=== PATIENT | female | born 1960 | race Caucasian/White ===

== ENCOUNTER 2017-12-09 12:12 | Emergency (ER) | payer BC, SELFPAY ==
[2017-12-09 12:15] VITALS: BP 150/86; PULSE 82; RESP 16; TEMP 36.6; O2SAT 97; BMI 35.1
--- NOTE | 2017-12-09 12:26 | VDLE_ITS ---
Reason For Study: LEG PAIN RIGHT LEFT CFV is compressible, spontaneous, phasic, GSV is normal. competent and demonstrates normal CFV is compressible, spontaneous, phasic, augmentation. competent, and demonstrates normal Procedure augmentation. Exam performed portable in ED. FV is compressible, spontaneous, phasic, LLE is mislabeled as RLE on images. competent and demonstrates normal A preliminary report was called and/or faxed augmentation. to Dr. Isaacs. POP V is compressible, spontaneous, phasic, competent and demonstrates normal augmentation. T/P Trunk is compressible. PTV is compressible. LT PerV is compressible. Interpretation Summary There is no evidence of left lower extremity deep vein thrombosis. Right greater saphenous vein appears patent and compressible segmentally. Normal flow patterns right common femoral vein Ordering Physician: Kika Isaacs Performed By: Claudia Maria RVT
--- NOTE | 2017-12-09 12:59 | ED.DCSUM_ITS ---
- ER Visit Summary Date of Service: 12/09/17 Chief Complaint: [Left leg pain] History of Present Illness: The patient is a 57 F [presents the emergency department complaint of pain in her left leg that she has had for a couple weeks. Patient states that she went to [place] 2 weeks ago and while on the escalator somebody dropped a piece of luggage that then struck her against the left calf. Patient had swelling and discomfort since that time. Patient continues to have swelling and discoloration and today was seen at urgent care who referred her to the emergency department to rule out DVT as patient just flew back from [place] last night. Patient denies any chest pain or shortness of breath. Patient does not have history of DVT.] Physical Examination: [HEENT-PERRLA, EOMI. Cranial nerves II through XII grossly intact. TMs clear. Mucous membranes moist. No adenopathy. Cardiovascular-regular rate and rhythm without murmur or ectopy Lungs-clear to auscultation, chest wall stable without crepitus or subcu emphysema Abdomen-normoactive bowel sounds, soft, nontender, no rebound or rigidity, no peritoneal signs. Extremities-intact ?4, normal range of motion, normal pulses. Left leg-lower calf patient has some faint ecchymosis and bruising as well as some firmness noted with suspected hematoma. She is neurovascular intact distally. Test Results: [Venous duplex obtained was negative for DVT] Emergency Department Course and Treatment: [] Treatment Plan: [Ibuprofen for discomfort.] Disposition: [Discharged home in stable condition.] Impression: [Contusion/hematoma left calf] This note was generated with [employer] dictation software. It may contain incorrect words, spelling, and punctuation that were not noted in review of the chart prior to signing ED Disposition - Plan for ED Patient: Chief Complaint: Lower Extremity Injury Referrals: Casey Gavin MD [Primary Care Provider] -
--- NOTE | 2017-12-09 13:00 | ED.DEP ---
ED Disposition - Plan for ED Patient: Chief Complaint: Lower Extremity Injury Instructions: Contusions (Bruises), ED Hematoma Referrals: Casey Gavin MD [Primary Care Provider] - As Needed
--- NOTE | 2017-12-09 13:03 | ED.RN ---
DISCHARGE INSTRUCTIONS GIVEN TO AND REVIEWED WITH PATIENT, PATIENT DENIES QUESTIONS OR CONCERNS AND VOICES UNDERSTANDING OF DISCHARGE INSTRUCTIONS. PT AMBULATES OUT OF ROOM WITHOUT DIFFICULTY.
== END 2017-12-09 13:18 | disposition home or self-care (01) ==
LOC: ED 13:09
PROVIDERS: Emergency Provider Emergency Medicine; Family Provider Family Medicine; PCP Family Medicine
DX: S80.12XA Contusion of left lower leg, initial encounter (principal); W22.8XXA Striking against or struck by other objects, initial encounter; Y93.9 Activity, unspecified; Y92.9 Unspecified place or not applicable
CPT/HCPCS: 93971; 99282

== ENCOUNTER 2020-10-19 09:56 | Emergency (ER) | payer BC, SELFPAY ==
[2020-10-19 09:57] VITALS: BP 172/89; PULSE 105; RESP 17; TEMP 37.1; O2SAT 97; BMI 35.4
--- NOTE | 2020-10-19 10:30 | EDS_ITS ---
HPI History of Present Illness Chief Complaint: Palpitations Informant: patient Narrative Narrative: Patient is a 60-year-old female with a past medical history of hypertension, hyperlipidemia who presents to the emergency department for intermittent palpitations, lightheadedness. She states that her blood pressure has been fluctuating lately. Her initial symptoms started this past Monday. She currently is asymptomatic. She had routine lab testing done today and she was discussing her symptoms with the nurse who referred her to the emergency department. She has been asymptomatic today. She denies any chest pain. No significant shortness of breath. She has gotten lightheaded at times but is denying this now. She denies any known history of heart arrhythmia. She is not a blood thinning medications. She denies any leg swelling or calf pain. She does have a family history of coronary artery disease. She denies any recent illness including any nausea/vomiting or diarrhea. No cough, cold, congestion or fever/chills. PFSH PFS Medical History (Updated 10/19/20 @ 11:[address] Andrew Hull DO) High cholesterol Hypertension Home Medications Pravastatin 20 mg PO QHS 12/09/17 [History Last Taken Unknown] hydrochlorothiazide 25 mg PO DAILY 12/09/17 [History Last Taken Unknown] meloxicam [Mobic] 15 mg PO DAILY 12/09/17 [History Last Taken Unknown] valsartan 10/19/20 [History Last Taken Unknown] Allergy/AdvReac Type Severity Reaction Status Date / Time imiquimod [From Zyclara] Allergy Shortness Verified 10/19/20 09:57 of breath metoprolol Allergy Rash Verified 10/19/20 09:57 Penicillins [PCN] Allergy Rash Verified 10/19/20 09:57 sulfamethoxazole Allergy Rash Verified 10/19/20 09:57 [From Bactrim] trimethoprim [From Bactrim] Allergy Rash Verified 10/19/20 09:57 DAMIAN Inhibitors AdvReac Other Verified 10/19/20 09:57 Surgical History (Updated 10/19/20 @ 10:43 by Elana Morejon) History of hysterectomy History of tonsillectomy Social History Smoking Status: Unknown if ever smoked ROS ROS ED Constitutional Constitutional ED: Denies chills or fever(s) Eyes Eyes: Denies change in vision ENT ENT ED: Denies epistaxis or rhinorrhea Cardiovascular Cardiovascular: Reports palpitations; Denies chest pain Respiratory/Chest Respiratory/Chest: Denies cough, dyspnea or dyspnea on exertion Gastrointestinal Gastrointestinal: Denies abdominal pain, diarrhea, nausea or vomiting Genitourinary Genitourinary ED: Denies dysuria, hematuria or urinary frequency Musculoskeletal Musculoskeletal: Denies back pain or neck pain Integumentary Denies rash Neurologic Neurologic: Denies dizziness, headache(s) or weakness EXAM Physical Exam Const Vital Signs: 10/19/20 09:57 10/19/20 10:41 10/19/20 10:45 Temperature 98.7 F Temperature Source Temporal Pulse Rate 105 H 90 Respiratory Rate 17 19 H Respiratory Effort Normal Blood Pressure 172/89 H 157/81 H Blood Pressure Mean 116 106 Pulse Ox 97 97 Oxygen Delivery Method Room Air 10/19/20 12:06 Temperature Temperature Source Pulse Rate 89 Respiratory Rate 16 Respiratory Effort Blood Pressure 143/87 H Blood Pressure Mean Pulse Ox 99 Oxygen Delivery Method Positive well nourished and well developed General Appearance ED: well developed and NAD HEENT Reports normocephalic and head/scalp atraumatic Eyes PERRL and EOMs intact bilaterally Chest Wall inspection of chest normal Resp normal respiratory effort and clear to auscultation bilaterally Auscultation: Negative for rales, rhonchi or wheezes Cardio regular rhythm and no murmurs Rate: other Other Details: Borderline tachycardic GI normal to inspection, nondistended, normoactive bowel sounds and non-tender Palpation: soft; Negative for guarding or rebound tenderness present Back/Spine no CVA tenderness Extremity normal to inspection General Extremety ED: Negative for edema or tenderness General Extremity: Negative for edema Neuro oriented x3, CN's II-XII intact bilaterally and no sensory deficits noted Sensorium / Orientation: alert Motor Exam: strength 5/5 throughout Psych mental status grossly normal Skin no rashes or lesions noted MDM MDM MDM Narrative Medical decision making narrative: Patient presents to the hospital for intermittent palpitations which she is currently asymptomatic from. She is had some lightheadedness. On arrival to the emergency department she has a pulse of 105. She is satting 97% on room air. She is hypertensive. She otherwise is currently asymptomatic. Given her recent symptoms we will check basic lab work, EKG and chest x-ray. Patient's CBC is within normal limits. No acute electrolyte disturbance. Her troponin is well within normal limits. Her chest x-ray did not reveal any acute cardiopulmonary abnormality. She has remained asymptomatic throughout ED stay. At this time I believe she is stable for discharge as she is asymptomatic with a benign work-up. She is to follow-up with her PCP. She may benefit from Holter monitor. Return precautions are reviewed with her including any worsening symptoms, persistent symptoms. She understands and is agreeable this plan. All questions are answered. Lab Data Labs: Laboratory Results - last 24 hr 10/19/20 10/19/20 10:50 10:50 WBC 5.9 RBC 4.75 Hgb 13.6 Hct 41.5 MCV 87.4 MCH 28.6 MCHC 32.8 RDW Std Deviation 40.5 RDW Coeff of Fabrice 13.0 Plt Count 228 MPV 8.8 Immature Gran % (Auto) 0.700 Neut % (Auto) 62.1 Lymph % (Auto) 27.1 [place] % (Auto) 7.5 Eos % (Auto) 1.2 Baso % (Auto) 1.4 H Absolute Neuts (auto) 3.7 Absolute Lymphs (auto) 1.59 Nucleated RBC % 0 Sodium 143 Potassium 3.5 Chloride 107 Carbon Dioxide 29.0 Anion Gap 7 BUN 15 Creatinine 0.67 Estim Creat Clear Calc 66.54 Est GFR (MDRD) Af Amer 114 Est GFR (MDRD) Non-Af 94 BUN/Creatinine Ratio 22.3 H Glucose 109 H Calcium 9.8 Magnesium 1.7 Troponin I High Sens 3.5 Radiography Diagnostic Testing: Radiology Impression Chest X-Ray 10/19/20 11:06 IMPRESSION: No acute abnormality is seen. Electronically Signed: Charles Kennedy MD at 11:19 EDT , Service support , EKG Initial EKG: Attestation: I personally reviewed and interpreted this EKG as follows: (Rate of 84 bpm and normal sinus rhythm. Normal intervals. Normal axis. No significant ST elevations or depressions. No T wave abnormalities.) Discharge Plan Triage Chief Complaint: Palpitations ED Provider: Andrew Hull Dx/Rx/DC Orders Clinical Impression: Palpitations Instructions: ED Palpitations Prescriptions: No Action meloxicam [Mobic] 15 MG tablet 15 mg PO DAILY RF: 0 hydrochlorothiazide 25 MG tablet 25 mg PO DAILY RF: 0 Pravastatin 20 MG tablet 20 mg PO QHS RF: 0 valsartan RF: 0 Primary Care Provider: Casey Gavin Referrals: Casey Gavin MD [Primary Care Provider] - 2 Days Disposition Disposition: Home, Self Care Discharge Date/Time: 10/19/20 12:07
--- NOTE | 2020-10-19 10:33 | EKG12_ITS ---
Test Reason : PALPS Blood Pressure : / mmHG Vent. Rate : 084 BPM Atrial Rate : 084 BPM P-R Int : 160 ms QRS Dur : 070 ms QT Int : 386 ms P-R-T Axes : 030 002 016 degrees QTc Int : 456 ms Normal sinus rhythm Normal ECG Confirmed by MANJULA VU, ANANDA ([id number]), electronic news gathering editor FEDERICO ORTEGA ([id number]) on 10/21/2020 10:35:54 AM Referred By: MARY Confirmed By:ANANDA FAIR MD
[2020-10-19 10:41] VITALS: BP 157/81; PULSE 90; RESP 19; O2SAT 97
[2020-10-19 10:53] LABS: Absolute Lymphocyte Count 1.59 X10^3/uL (0.83-4.51); Absolute Neutrophil Count 3.7 X10^3/uL (2.0-7.7); Basophil# 0.08 X10^3/uL; Basophil% 1.4 % (0-1); Eosinophil# 0.07 X10^3/uL; Eosinophils% 1.2 % (0-5); Hematocrit 41.5 % (37-47); Hemoglobin 13.6 g/dL (12.0-15.0); Lymphocyte # 1.59 X10^3/ul (0.83-4.51); Lymphocyte % 27.1 % (19-41); Mean Corp Hgb Conc 32.8 g/dL (32-36); Mean Corpuscular Hgb 28.6 pg (27.0-32.0); Mean Corpuscular Volume 87.4 fL (81-99); Mean Platelet Vol. 8.8 fl (6.2-12.0); Monocyte# 0.44 X10^3/uL; Monocyte% 7.5 % (0-10); NRBC Flagged by Analyzer 0 % (0-5); Neutrophil # 3.65 X10^3/uL (2.7-7.7); Neutrophil % 62.1 % (47-70); Platelet Count 228 K/mm3 (150-450); RBC Distribution Width SD 40.5 fl (35.1-43.9); Red Blood Count 4.75 M/mm3 (4.2-5.4); White Blood Count 5.9 K/mm3 (4.4-11.0)
--- NOTE | 2020-10-19 11:06 | RAD_ITS ---
STUDY: X-RAY CHEST REASON FOR EXAM: Female, 60 years old. Shortness of breath and palpitations. TECHNIQUE: Single AP portable view of the chest. COMPARISON: Comparison is made with prior study dated 12/21/2013. FINDINGS: EKG electrodes are seen. The lungs are clear and expanded. There is no demonstrated pleural abnormality. Normal size heart. Normal mediastinum and leilani. Normal visualized pulmonary arteries. There is atherosclerotic tortuosity of the aortic arch and descending thoracic aorta. There are degenerative changes of the visualized thoracic spine. Normal visualized ribs, clavicles, and shoulders. There is no demonstrated abnormality of the visualized soft tissue structures of the upper abdomen. RAD/Chest 1 View (Portable) IMPRESSION: No acute abnormality is seen. Electronically Signed: Charles Kennedy MD at 11:19 EDT , Service support ,
[2020-10-19 11:12] LABS: Anion Gap 7 (5-15); BUN 15 mg/dL (7-18); BUN/Creat Ratio 22.3 RATIO (10-20); Calcium,Total 9.8 mg/dL (8.5-10.1); Chloride 107 mmol/L (98-107); Creatinine, Serum 0.67 mg/dL (0.55-1.02); EST Glomerular Filtration Rate 94 mL/min (>60); Est Glom Filt Rate - Afr Amer 114 mL/min (>60); Estimated Creatinine Clearance 66.54 ml/min; Glucose 109 mg/dL (74-106); Magnesium 1.7 mg/dL (1.6-2.6); Potassium 3.5 mmol/L (3.5-5.1); Sodium Level 143 mmol/L (136-145); Troponin-I HS 3.5 pg/mL (3.0-53.7)
[2020-10-19 12:06] VITALS: BP 143/87; PULSE 89; RESP 16; O2SAT 99
== END 2020-10-19 12:07 | disposition home or self-care (01) ==
PROVIDERS: Emergency Provider Emergency Medicine; PCP Family Medicine
DX: R00.2 Palpitations (principal); I10 Essential (primary) hypertension; E78.5 Hyperlipidemia, unspecified; Z79.1 Long term (current) use of non-steroidal anti-inflammatories (NSAID); Z79.899 Other long term (current) drug therapy; Z82.49 Family history of ischemic heart disease and other diseases of the circulatory system
CPT/HCPCS: 71045; 80048; 83735; 84484; 85025; 93005; 99284; A4216

== ENCOUNTER 2021-04-23 18:48 | Inpatient (IN) | payer BC, SELFPAY ==
[2021-04-23 18:48] VITALS: BP 139/88; PULSE 138; RESP 18; TEMP 36.5; O2SAT 95; BMI 36.1
[2021-04-23 19:29] LABS: Absolute Lymphocyte Count 1.28 X10^3/uL (0.83-4.51); Absolute Neutrophil Count 17.8 X10^3/uL (2.0-7.7); Basophil# 0.05 X10^3/uL; Basophil% 0.2 % (0-1); Eosinophil# 1.28 X10^3/uL; Eosinophils% 5.8 % (0-5); Hematocrit 44.4 % (37-47); Hemoglobin 15.6 g/dL (12.0-15.0); Lymphocyte # 1.28 X10^3/ul (0.83-4.51); Lymphocyte % 5.8 % (19-41); Mean Corp Hgb Conc 35.1 g/dL (32-36); Mean Corpuscular Hgb 29.6 pg (27.0-32.0); Mean Corpuscular Volume 84.3 fL (81-99); Mean Platelet Vol. 8.8 fl (6.2-12.0); Monocyte# 1.47 X10^3/uL; Monocyte% 6.7 % (0-10); NRBC Flagged by Analyzer 0 % (0-5); Neutrophil # 17.76 X10^3/uL (2.7-7.7); Neutrophil % 80.5 % (47-70); POSITIVE MORPHOLOGY YES; Platelet Count 248 K/mm3 (150-450); RBC Distribution Width SD 39.9 fl (35.1-43.9); Red Blood Count 5.27 M/mm3 (4.2-5.4); White Blood Count 22.1 K/mm3 (4.4-11.0)
[2021-04-23 19:31] LABS: Differential Indicated SCAN CRITERIA MET
[2021-04-23 19:52] LABS: Anion Gap 10 (5-15); BUN 13 mg/dL (7-18); BUN/Creat Ratio 12.6 RATIO (10-20); Calcium,Total 10.6 mg/dL (8.5-10.1); Chloride 99 mmol/L (98-107); Creatinine, Serum 1.03 mg/dL (0.55-1.02); EST Glomerular Filtration Rate 58 mL/min (>60); Est Glom Filt Rate - Afr Amer 70 mL/min (>60); Estimated Creatinine Clearance 40.68 ml/min; Glucose 171 mg/dL (74-106); Potassium 3.9 mmol/L (3.5-5.1); Sodium Level 133 mmol/L (136-145)
[2021-04-23 20:15] LABS: Differential Comment SCANNED
[2021-04-23 20:26] LABS: Mucous, Urine 0 SEEN /hpf (<or=2+)
[2021-04-23 20:31] LABS: Lipase 39 U/L (73-393)
[2021-04-23 20:33] LABS: Color, Urine Yellow (Yellow); Glucose, Dipstick 50 mg/dl (Normal); Ketone-Dipstick 15 mg/dl (Negative); Leukocyte Esterase-Dipstick 100 /ul (Negative); Nitrite-Dipstick Positive (Negative); Occult Blood-Urine 150 /ul (Negative); Protein-Dipstick 100 mg/dl (Negative); Specific Gravity, Urine 1.025 (1.002-1.030); Urine Clarity Sl. Cloudy (Clear); Urine Urobilinogen 4 mg/dl (Normal)
--- NOTE | 2021-04-23 20:41 | US_ITS ---
We are attempting to reach an attending provider to discuss findings. An addendum with communication details will be sent when the communication is complete. STUDY: ABDOMINAL ULTRASOUND - RIGHT UPPER QUADRANT REASON FOR VISIT: Female, 61 years old RUQ pain TECHNIQUE: Ultrasound evaluation of the right upper quadrant was performed with real-time and static singh-scale imaging. TECHNICAL QUALITY: Adequate. COMPARISON: None. FINDINGS: Liver: The liver measures 17.3 cm. There is increased echogenicity consistent with fatty infiltration. The bile ducts are within normal limits. There is hepatic color flow. The direction of portal flow is hepatopetal. There is no demonstrated mass lesion. Gallbladder: Normal distended gallbladder. The gallbladder wall measures 9 mm. There is a positive sonographic [place]''s sign. There is pericholecystic fluid. There are several echogenic structures within the gallbladder, consistent with gallstones. These measure between 1 and 2 cm in size. Common Bile Duct (C.B.D.): The common bile duct measures 9 mm. Pancreas: Normal size of the head, body and tail of the pancreas. There is normal echogenicity of the pancreas. There is no demonstrated pancreatic mass or cyst. No ductal dilation. Right Kidney: Normal size of the right kidney. The right kidney measures 10.8 cm. Normal renal cortex. The right cortex measures 1.0 cm. There is no demonstrated renal mass or cyst. There is no right hydronephrosis. Normal color flow right renal hilum. US/Gallbladder IMPRESSION: Cholelithiasis without evidence of acute cholecystitis as well as extrahepatic biliary ductal dilation with common bile duct measuring 9 mm. Hepatic steatosis. Electronically Signed: Ang Avila DO at 22:37 EST ,
[2021-04-23 20:47] LABS: AST(SGOT) 42 U/L (15-37); Alanine Aminotransfer ALT/SGPT 47 U/L (13-56); Albumin, Serum 3.7 g/dL (3.2-5.0); Alkaline Phosphatase 102 U/L (45-117); Bilirubin, Direct 0.61 mg/dL (0.00-0.30); Globulin 3.8 g/dL (2.2-4.2); Protein, Total 7.5 g/dL (6.4-8.2)
[2021-04-23] MEDS: Ondansetron 4 MG/2 ML Vial IV (20:49)
[2021-04-23] MEDS: 0.9% Normal Saline 1,000 ML 999 ML IV ×2 (20:49→23:22)
[2021-04-23] MEDS: Morphine 4 MG/ML Syringe IV (20:49)
[2021-04-23 20:52] LABS: Urine Bilirubin Dipstick 3 mg/dL (Negative)
[2021-04-23 20:54] LABS: Bacteria 3+ /hpf (None Seen); Red Blood Cells-Urine 5-10 SEEN /hpf (0-5); Squamous Epithelial Cells - UA 0-5 SEEN /hpf (5-10); White Blood Cells 5-10 SEEN /hpf (0-5); White Cell Cast 0-5 SEEN /lpf (None Seen)
[2021-04-23 20:55] LABS: Amorphous Sediment 1+ URATE
--- NOTE | 2021-04-23 21:12 | EDS_ITS ---
HPI HPI - GI History of Present Illness Chief Complaint: Abd Pain Narrative Narrative: 61-year-old female presenting with right upper quadrant pain. She states that this started on Monday. She localizes it to the mid epigastrium and left side of the abdomen and then started radiating to the right side of the abdomen. She does not have any nausea, vomiting, fever, chills, constipation, diarrhea. She has not had a fever. She denies chest pain or shortness of breath. She denies urinary complaints. [facility] Medical History (Updated 04/23/21 @ 23:[address] Nazanin Dial MD) High cholesterol Hypertension Obesity Home Medications Pravastatin 20 mg PO QHS 12/09/17 [History Last Taken Unknown] hydrochlorothiazide 25 mg PO DAILY 12/09/17 [History Last Taken Unknown] meloxicam [Mobic] 15 mg PO DAILY 12/09/17 [History Last Taken Unknown] valsartan 10/19/20 [History Last Taken Unknown] Allergy/AdvReac Type Severity Reaction Status Date / Time imiquimod [From Zyclara] Allergy Shortness Verified 04/23/21 18:50 of breath metoprolol Allergy Rash Verified 04/23/21 18:50 Penicillins [PCN] Allergy Rash Verified 04/23/21 18:50 sulfamethoxazole Allergy Rash Verified 04/23/21 18:50 [From Bactrim] trimethoprim [From Bactrim] Allergy Rash Verified 04/23/21 18:50 DAMIAN Inhibitors AdvReac Other Verified 04/23/21 18:50 Family History (Updated 04/23/21 @ 23:[address] Nazanin Dial MD) Mother CAD (coronary artery disease) s/p CABG x 3. Heart disease Hypertension Father Hypertension Surgical History History of hysterectomy History of tonsillectomy Social History household members: spouse Smoking Status: Never smoker alcohol intake: never substance use type: does not use ROS ROS ED Constitutional Constitutional ED: Denies chills or fever(s) ENT ENT ED: Denies rhinorrhea or sore throat Cardiovascular Cardiovascular: Denies chest pain or palpitations Respiratory/Chest Respiratory/Chest: Denies cough or dyspnea Gastrointestinal Gastrointestinal: Reports abdominal pain; Denies constipation, diarrhea, nausea or vomiting Genitourinary Genitourinary ED: Denies dysuria or hematuria Musculoskeletal Musculoskeletal: Denies arthralgias or myalgias Integumentary Denies rash Neurologic Neurologic: Denies headache(s) or weakness EXAM Physical Exam Const Vital Signs: 04/23/21 18:48 04/23/21 22:09 Temperature 97.7 F L Temperature Source Oral Pulse Rate 138 H Respiratory Rate 18 16 Blood Pressure 139/88 H Blood Pressure Mean 105 Pulse Ox 95 Oxygen Delivery Method Room Air Positive well nourished and obese General Appearance ED: NAD Nutritional Appearance: obese HEENT Reports moist mucous membranes normocephalic and atraumatic Eyes PERRL and EOMs intact bilaterally General Eye ED: Negative for pale conjunctiva or scleral icterus Neck no lymphadenopathy and supple Resp normal respiratory effort and clear to auscultation bilaterally Cardio regular rhythm Rate: tachycardic MDM MDM MDM Narrative Medical decision making narrative: With right upper quadrant pain. She reports is been present for 3 days. She is tender on exam in the right upper quadrant. Since her heart rate was 138 and I presume the source of infection I did do a sepsis work-up. CBC shows a leukocytosis of 22.1. She does have a left shift. Hemoglobin hematocrit are stable. Renal function is normal. Sodium slightly low at 133 but otherwise electrolytes are normal. Urinalysis returned and was consistent with infection and she was given Rocephin 1 g IV. Total bilirubin 2.50, direct bilirubin 0.61, AST 42, ALT normal, alkaline phosphatase normal. High-sensitivity troponin is four. EKG on my interpretation shows a sinus tachycardia with a ventricular rate of 110 bpm without sign of ischemic change. Lactic acid normal at 1.4. PT slightly prolonged at 16.9. INR normal. Right upper quadrant ultrasound shows concern for acute cholecystitis and the radiologist did call me and confirm this. Initially his dictation was an error and was read as acute cholelithiasis without acute cholecystitis. He states he will put an addendum for this. Dr. Cross was consulted and states that she will admit the patient. Patient was given a dose of Flagyl since she already received Rocephin and she is penicillin allergic. Chest Xray and rapid covid testing pending on admission and will be followed by the incoming ED physician. Impression: 1. Acute cholecystitis Lab Data Attestation: I reviewed the patient's lab results. Labs: Laboratory Results - last 24 hr 04/23/21 04/23/21 04/23/21 19:23 19:23 19:23 WBC 22.1 H RBC 5.27 Hgb 15.6 H Hct 44.4 MCV 84.3 MCH 29.6 MCHC 35.1 RDW Std Deviation 39.9 RDW Coeff of Fabrice 13.0 Plt Count 248 MPV 8.8 Immature Gran % (Auto) 1.000 H Neut % (Auto) 80.5 H Lymph % (Auto) 5.8 L [place] % (Auto) 6.7 Eos % (Auto) 5.8 H Baso % (Auto) 0.2 Absolute Neuts (auto) 17.8 H Absolute Lymphs (auto) 1.28 Nucleated RBC % 0 Differential Comment SCANNED PT INR Sodium 133 L Potassium 3.9 Chloride 99 Carbon Dioxide 24.0 Anion Gap 10 BUN 13 Creatinine 1.03 H Estim Creat Clear Calc 40.68 Est GFR (MDRD) Af Amer 70 Est GFR (MDRD) Non-Af 58 L BUN/Creatinine Ratio 12.6 Glucose 171 H Lactic Acid Calcium 10.6 H Total Bilirubin Direct Bilirubin AST ALT Alkaline Phosphatase Troponin I High Sens 4 Total Protein Albumin Globulin Lipase Urine Color Urine Clarity Urine pH Ur Specific [place] Urine Protein Urine Glucose (UA) Urine Ketones Urine Occult Blood Urine Nitrite Urine Bilirubin Urine Urobilinogen Ur Leukocyte Esterase Urine RBC Urine WBC Ur Squamous Epith Cells Amorphous Sediment Urine Bacteria WBC Casts Urine Mucus 04/23/21 04/23/21 04/23/21 20:11 20:17 20:17 WBC RBC Hgb Hct MCV MCH MCHC RDW Std Deviation RDW Coeff of Fabrice Plt Count MPV Immature Gran % (Auto) Neut % (Auto) Lymph % (Auto) [place] % (Auto) Eos % (Auto) Baso % (Auto) Absolute Neuts (auto) Absolute Lymphs (auto) Nucleated RBC % Differential Comment PT INR Sodium Potassium Chloride Carbon Dioxide Anion Gap BUN Creatinine Estim Creat Clear Calc Est GFR (MDRD) Af Amer Est GFR (MDRD) Non-Af BUN/Creatinine Ratio Glucose Lactic Acid Calcium Total Bilirubin 2.50 H Direct Bilirubin 0.61 H AST 42 H ALT 47 Alkaline Phosphatase 102 Troponin I High Sens Total Protein 7.5 Albumin 3.7 Globulin 3.8 Lipase 39 L Urine Color Yellow Urine Clarity Sl. Cloudy Urine pH 5.0 Ur Specific [place] 1.025 Urine Protein 100 H Urine Glucose (UA) 50 H Urine Ketones 15 H Urine Occult Blood 150 H Urine Nitrite Positive H Urine Bilirubin 3 H Urine Urobilinogen 4 H Ur Leukocyte Esterase 100 H Urine RBC 5-10 SEEN Urine WBC 5-10 SEEN Ur Squamous Epith Cells 0-5 SEEN Amorphous Sediment 1+ URATE Urine Bacteria 3+ WBC Casts 0-5 SEEN Urine Mucus 0 SEEN 04/23/21 04/23/21 20:27 22:00 WBC RBC Hgb Hct MCV MCH MCHC RDW Std Deviation RDW Coeff of Fabrice Plt Count MPV Immature Gran % (Auto) Neut % (Auto) Lymph % (Auto) [place] % (Auto) Eos % (Auto) Baso % (Auto) Absolute Neuts (auto) Absolute Lymphs (auto) Nucleated RBC % Differential Comment PT 16.9 H INR 1.5 Sodium Potassium Chloride Carbon Dioxide Anion Gap BUN Creatinine Estim Creat Clear Calc Est GFR (MDRD) Af Amer Est GFR (MDRD) Non-Af BUN/Creatinine Ratio Glucose Lactic Acid 1.4 Calcium Total Bilirubin Direct Bilirubin AST ALT Alkaline Phosphatase Troponin I High Sens Total Protein Albumin Globulin Lipase Urine Color Urine Clarity Urine pH Ur Specific [place] Urine Protein Urine Glucose (UA) Urine Ketones Urine Occult Blood Urine Nitrite Urine Bilirubin Urine Urobilinogen Ur Leukocyte Esterase Urine RBC Urine WBC Ur Squamous Epith Cells Amorphous Sediment Urine Bacteria WBC Casts Urine Mucus Radiography Diagnostic Testing: Clinical Impression(s) from Imaging Studies Gallbladder Ultrasound 04/23/21 20:41 IMPRESSION: Cholelithiasis without evidence of acute cholecystitis as well as extrahepatic biliary ductal dilation with common bile duct measuring 9 mm. Hepatic steatosis. Electronically Signed: Ang Avila DO at 22:37 EST , ADDENDUM: 04/23/21 [id number] IMPRESSION: Cholelithiasis without evidence of acute cholecystitis as well as extrahepatic biliary ductal dilation with common bile duct measuring 9 mm. Hepatic steatosis. N.B. : The above Results were Read Back by Ang Avila DO to Nikita Jackson DO, and understanding confirmed on 04/23/2021 22:42:13 (ET). Electronically Signed: Ang Avila DO at 22:37 EST , ADDENDUM: 04/23/21 [id number] IMPRESSION: Cholelithiasis with acute cholecystitis as well as extrahepatic biliary ductal dilation with common bile duct measuring 9 mm. Hepatic steatosis. Electronically Signed: Ang Avila DO at 22:42 EST , N.B. : The above Results were Read Back by Ang Avila DO to Nikita Jackson DO, and understanding confirmed on 04/23/2021 22:42:13 (ET). Discharge Plan Triage Chief Complaint: Abd Pain ED Provider: Nikita Jackson Dx/Rx/DC Orders Prescriptions: No Action meloxicam [Mobic] 15 MG tablet 15 mg PO DAILY RF: 0 hydrochlorothiazide 25 MG tablet 25 mg PO DAILY RF: 0 Pravastatin 20 MG tablet 20 mg PO QHS RF: 0 valsartan RF: 0 Primary Care Provider: Casey Gavin
--- NOTE | 2021-04-23 21:14 | EKG12_ITS ---
Test Reason : ABD PAIN Blood Pressure : / mmHG Vent. Rate : 110 BPM Atrial Rate : 110 BPM P-R Int : 150 ms QRS Dur : 070 ms QT Int : 328 ms P-R-T Axes : 029 020 003 degrees QTc Int : 443 ms Sinus tachycardia Nonspecific T wave abnormality Abnormal ECG Confirmed by MANJULA VU, ANANDA ([id number]), image editor FEDERICO ORTEGA ([id number]) on 04/27/2021 9:41:47 AM Referred By: ROSANNA Confirmed By:ANANDA FAIR MD
[2021-04-23 21:19] LABS: International Normalized Ratio 1.5; Prothrombin Time (Protime)PT. 16.9 SECONDS (11.7-14.9)
[2021-04-23 21:46] LABS: Troponin-I HS 4 pg/mL (3.0-54.0)
[2021-04-23] MEDS: Ceftriaxone 1 GM/50 ML BAG IV (22:08)
[2021-04-23 22:09] VITALS: RESP 16
[2021-04-23 22:43] LABS: Lactic Acid 1.4 mmol/L (0.4-1.9)
--- NOTE | 2021-04-23 22:59 | CON.PCM.HO_ITS ---
Assessment & Plan Assessment/Plan (1) UTI (urinary tract infection): QUALIFIERS: Urinary tract infection type: acute cystitis Hematuria presence: without hematuria Qualified Code(s): N30.00 - Acute cystitis without hematuria (2) Acute renal insufficiency: PLAN: The patient is a 61 y/o F w/ PMHx: HTN, HLD, Obesity who presents to the [facility] ED on 04/23/21 with history of onset right-sided upper abdominal quadrant pain starting on Monday with some mild radiation to the epigastrium with no nausea, emesis, fever, chills or any diarrhea however not improving prompting ED evaluation. #1. Acute Cholelithiasis with ? Cholecystitis and Dilated Extrahepatic Biliary Ductal Dilation: Admitted per General surgery, currently maintained given allergies on IV rocephin and flagy in case there is underlying cholecystitis given elevation of her LFTs and bilirubin although certainly could have passed a stone, n.p.o. status, maintain on IV PPI, continue aggressive hydration, repeat CBC, CMP in AM. Surgery notes intention for cholecystectomy in AM. #2. ? Acute Urinary Tract Infection: Although asymptomatic UA very notable and given acute #1, potentially overlooked sxs, pending UCx, continue IVFs, monitor I/Os, initiate and continue IV rocephin given unclear involvement of the gallbladder concurrently pending sensitivities and speciation as well as surgery evaluation. Bld cx x 2 obtained in the ED. #3. Acute renal insufficiency: Admission BUN/creatinine 13/1.03, baseline 0.6- 0.7, will continue aggressive hydration, will temporarily hold patient valsartan hydrochlorothiazide with resumption if improving renal function, repeat CMP in AM. #4. Hypertension: We will temporarily hold valsartan hydrochlorothiazide given mild renal insufficiency, as needed IV hydralazine in interim. #5. Hyperlipidemia: We will temporally hold patient home statin therapy given elevated bilirubin and mild elevation LFTs, resume once appropriate. #6. Obesity: Weight loss and lifestyle changes encouraged. #7. DVT prophylaxis: SCDs, hold chemoprophylaxis pending surgery evaluation. HPI Consult Data Date of Consult: 04/23/21 HPI Narrative HPI Narrative: The patient is a 61 y/o F w/ PMHx: HTN, HLD, Obesity who presents to the [facility] ED on 04/23/21 with history of onset right-sided upper abdominal quadrant pain starting on Monday with some mild radiation to the epigastrium with no nausea, emesis, fever, chills or any diarrhea however not improving pr ompting ED evaluation. Patient rates her pain 9/10, severe, sharp with any palpation to the RUQ otherwise laying with no movement and no palpation pain dull aching 1-2/10. Patient denies any significant urinary complaints including frequency, urgency, retention despite urinalysis appearance. She report however several days of lumbar back discomfort although she does suffer occasionally from sciatic and felt it was consistent. Work-up in the ED included T 97.7, heart rate initially 138, BP 139/88, respiratory rate 18, 95% on room air, CBC with WC 22.1, hemoglobin 15.6, platelet 248 with left shift, coags with INR 1.5, PT 16.9, CMP with sodium 133, BUN/creat 13/1.03, glucose 171, lactic acid 1.4, total bilirubin 2.50, direct bilirubin 0.61, AST/LT 42/47, troponin IV, lipase 39, urinalysis with evidence of dehydration with elevated specific gravity 1.025, protein 100, glucose 50, ketones 50, occult blood 150, positive nitrite, 3 urine bilirubin, 4 urine urobilinogen, 100 leukocytes esterase, 5-10 urine RBC, 5-10 urine WBC, 3+ urine bacteria, urine culture pending per ED, blood culture x2 pending per ED, gallbladder ultrasound with cholelithiasis without evidence of acute cholecystitis as well as extrahepatic biliary ductal dilatation with common bile duct measuring 9 mm. In the ED patient ministered normal saline, Rocephin, morphine 4 mg IV x1 as well as Zofran 4 mg IV x1. [facility] Medical History (Updated 04/23/21 @ 23:[address] Nazanin Dial MD) High cholesterol Hypertension Obesity Home Medications Pravastatin 20 mg PO QHS 12/09/17 [History Last Taken Unknown] hydrochlorothiazide 25 mg PO DAILY 12/09/17 [History Last Taken Unknown] meloxicam [Mobic] 15 mg PO DAILY 12/09/17 [History Last Taken Unknown] valsartan 10/19/20 [History Last Taken Unknown] Allergy/AdvReac Type Severity Reaction Status Date / Time imiquimod [From Zyclara] Allergy Shortness Verified 04/23/21 18:50 of breath metoprolol Allergy Rash Verified 04/23/21 18:50 Penicillins [PCN] Allergy Rash Verified 04/23/21 18:50 sulfamethoxazole Allergy Rash Verified 04/23/21 18:50 [From Bactrim] trimethoprim [From Bactrim] Allergy Rash Verified 04/23/21 18:50 DAMIAN Inhibitors AdvReac Other Verified 04/23/21 18:50 Family History (Updated 04/23/21 @ 23:[address] Nazanin Dial MD) Mother CAD (coronary artery disease) s/p CABG x 3. Heart disease Hypertension Father Hypertension Surgical History History of hysterectomy History of tonsillectomy Social History (Updated 04/23/21 @ 23:[address] Nazanin Dial MD) household members: spouse Smoking Status: Never smoker alcohol intake: never substance use type: does not use ROS ROS Narrative Admission Review of Systems: CONSTITUTIONAL: No weight loss, fever, chills, + weakness or fatigue. HEENT: Eyes: No visual loss, blurred vision, double vision or yellow sclerae. Ears, Nose, Throat: No hearing loss, sneezing, congestion, runny nose or sore throat. SKIN: No rash or itching, lesions, wounds. CARDIOVASCULAR: No chest pain, chest pressure or chest discomfort, palpitations, edema, orthopnea, syncopal events. RESPIRATORY: No shortness of breath, cough or sputum, wheezing, hemoptysis. GASTROINTESTINAL: + anorexia, abdominal pain, No nausea, vomiting, diarrhea, melena, BRBPR. GENITOURINARY: No dysuria, frequency, urgency or retention. NEUROLOGICAL: No headache, dizziness, syncope, paralysis, ataxia, numbness or tingling in the extremities, focal weakness, change in bowel or bladder control, seizure. MUSCULOSKELETAL: + muscle, back pain, joint pain or stiffness. HEMATOLOGIC: No anemia, bleeding or bruising. LYMPHATICS: No enlarged nodes. No history of splenectomy. PSYCHIATRIC: No history of depression or anxiety. ENDOCRINOLOGIC: No reports of sweating, cold or heat intolerance. No polyuria or polydipsia. ALLERGIES: No history of asthma, hives, eczema or rhinitis. Physical Exam Narrative Physical Examination: General: Awake, alert, oriented x 3 and cooperative, laying in the bed, fatigued, notes pain significant with palpation but currently lessened with medications and not moving. Skin: Normal color, normal turgor, no icterus, no cyanosis. HEENT: AT/NC, EOMI, PERRLA, dry MM, no carotid bruits or JVD noted. Lungs: Diminished, greater bases, moderate effort, no rales, ronchi or wheezing. Heart: Tachycardic with regular rhythm; no gallop, rub audible. Abdomen: Soft, significant discomfort to the epigastrium and primarily right upper quadrant with guarding and some rebound tenderness noted, difficult to assess distention given discomfort with evaluation, hyperactive bowel sounds, very difficult to ascertain HSM secondary to pain with evaluation. Extremities: No cyanosis, clubbing, or edema. Neurological: Patient awake, alert, oriented as noted, cognitive function appears intact; pupils equally reactive to light and accommodation, cranial nerves II-XII grossly normal, moving all 4 extremities, no focal deficits, strength moderately to severely go decree secondary to acute presentation. Psychiatric: Affect appears fatigued, mildly uncomfortable, no acute evidence of depressive or anxiety feelings. Lab / Micro Data Result Diagrams: 04/23/21 19:23 04/23/21 19:23 Labs: Laboratory Results - last 24 hr 04/23/21 19:23: WBC 22.1 H, RBC 5.27, Hgb 15.6 H, Hct 44.4, MCV 84.3, MCH 29.6, MCHC 35.1, RDW Std Deviation 39.9, RDW Coeff of Fabrice 13.0, Plt Count 248, MPV 8.8, Immature Gran % (Auto) 1.000 H, Neut % (Auto) 80.5 H, Lymph % (Auto) 5.8 L, [place] % (Auto) 6.7, Eos % (Auto) 5.8 H, Baso % (Auto) 0.2, Absolute Neuts (auto) 17.8 H, Absolute Lymphs (auto) 1.28, Nucleated RBC % 0, Differential Comment SCA NNED 04/23/21 19:23: Sodium 133 L, Potassium 3.9, Chloride 99, Carbon Dioxide 24.0, Anion Gap 10, BUN 13, Creatinine 1.03 H, Estim Creat Clear Calc 40.68, Est GFR (MDRD) Af Amer 70, Est GFR (MDRD) Non-Af 58 L, BUN/Creatinine Ratio 12.6, Glucose 171 H, Calcium 10.6 H 04/23/21 19:23: Troponin I High Sens 4 04/23/21 20:11: Urine Color Yellow, Urine Clarity Sl. Cloudy, Urine pH 5.0, Ur Specific [place] 1.025, Urine Protein 100 H, Urine Glucose (UA) 50 H, Urine Ketones 15 H, Urine Occult Blood 150 H, Urine Nitrite Positive H, Urine Bilirubin 3 H, Urine Urobilinogen 4 H, Ur Leukocyte Esterase 100 H, Urine RBC 5- 10 SEEN, Urine WBC 5-10 SEEN, Ur Squamous Epith Cells 0-5 SEEN, Amorphous Sediment 1+ URATE, Urine Bacteria 3+, WBC Casts 0-5 SEEN, Urine Mucus 0 SEEN 04/23/21 20:17: Total Bilirubin 2.50 H, Direct Bilirubin 0.61 H, AST 42 H, ALT 47, Alkaline Phosphatase 102, Total Protein 7.5, Albumin 3.7, Globulin 3.8 04/23/21 20:17: Lipase 39 L 04/23/21 20:27: PT 16.9 H, INR 1.5 04/23/21 22:00: Lactic Acid 1.4 Radiology Impression Gallbladder Ultrasound 04/23/21 20:41 IMPRESSION: Cholelithiasis without evidence of acute cholecystitis as well as extrahepatic biliary ductal dilation with common bile duct measuring 9 mm. Hepatic steatosis. Electronically Signed: Ang Avila DO at 22:37 EST , ADDENDUM: 04/23/21 [id number] IMPRESSION: Cholelithiasis without evidence of acute cholecystitis as well as extrahepatic biliary ductal dilation with common bile duct measuring 9 mm. Hepatic steatosis. N.B. : The above Results were Read Back by Ang Avila DO to Nikita Jackson DO, and understanding confirmed on 04/23/2021 22:42:13 (ET). Electronically Signed: Ang Avila DO at 22:37 EST , ADDENDUM: 04/23/21 1859 IMPRESSION: Cholelithiasis with acute cholecystitis as well as extrahepatic biliary ductal dilation with common bile duct measuring 9 mm. Hepatic steatosis. Electronically Signed: Ang Avila DO at 22:42 EST , N.B. : The above Results were Read Back by Ang Avila DO to Nikita Jackson DO, and understanding confirmed on 04/23/2021 22:42:13 (ET). Charges/Coding Visit Charges Office Visits / Consults: [id number] IP Consult L4
[2021-04-23] MEDS: metroNIDAZOLE 500 MG/100 ML BAG 100 MG IV (23:22)
--- NOTE | 2021-04-23 23:24 | RAD_ITS ---
INDICATION: preop clearance EXAMINATION/TECHNIQUE: X-RAY - XR Chest 1 View COMPARISON: 10/19/2020 and 12/21/2013 chest x-rays FINDINGS: LINES/DEVICES: None. LUNGS: Asymmetric elevation right hemidiaphragm seen on prior exams. Thin linear opacity left lateral lung base suggesting scarring; present on the prior exam. New right costophrenic angle subtle opacity suspected represent atelectasis however may represent a small focus of airspace disease or less likely nodule, roughly 8 mm. Atelectatic changes are favored as there are some linear opacities in this area. MEDIASTINUM AND CARDIOVASCULAR STRUCTURES: Normal size and contour of the cardiomediastinal silhouette. No evidence of pulmonary vascular congestion. BONES AND SOFT TISSUES: No abnormality within limits of the exam. RAD/Chest 1 View (Portable) IMPRESSION: 1. Findings likely representing atelectasis and/or scarring however somewhat nodular appearance in the right costophrenic angle could potentially represent nodule or airspace disease. Consider short-term interval follow-up if multiplanar imaging was not obtained. Electronically Signed: Ang Avila DO at 0:07 EST ,
[2021-04-23 23:38] VITALS: BP 134/86; PULSE 80; RESP 18; TEMP 36.6; O2SAT 99
[2021-04-23 23:59] VITALS: BMI 38.2
[2021-04-24] VITALS (8 sets, daily range): BP systolic 97–144; BP diastolic 43–74; PULSE 92–119; RESP 18–20; TEMP 37.2–37.7; O2SAT 93–96
[2021-04-24] MEDS: 0.9% Normal Saline 1,000 ML 150 ML IV (00:46)
[2021-04-24] MEDS: HYDROmorphone 1 MG/ML Syringe IV (00:52)
[2021-04-24 04:56] LABS: Absolute Lymphocyte Count 1.52 X10^3/uL (0.83-4.51); Absolute Neutrophil Count 14.5 X10^3/uL (2.0-7.7); Basophil# 0.03 X10^3/uL; Basophil% 0.2 % (0-1); Eosinophil# 0.09 X10^3/uL; Eosinophils% 0.5 % (0-5); Hematocrit 37.6 % (37-47); Hemoglobin 12.5 g/dL (12.0-15.0); Lymphocyte # 1.52 X10^3/ul (0.83-4.51); Lymphocyte % 8.5 % (19-41); Mean Corp Hgb Conc 33.2 g/dL (32-36); Mean Corpuscular Hgb 28.9 pg (27.0-32.0); Mean Corpuscular Volume 86.8 fL (81-99); Mean Platelet Vol. 8.9 fl (6.2-12.0); Monocyte# 1.52 X10^3/uL; Monocyte% 8.5 % (0-10); NRBC Flagged by Analyzer 0 % (0-5); Neutrophil % 81.6 % (47-70); POSITIVE DIFFERENTIAL YES; Platelet Count 185 K/mm3 (150-450); RBC Distribution Width CV 13.2 % (11.6-14.6); RBC Distribution Width SD 42.2 fl (35.1-43.9); Red Blood Count 4.33 M/mm3 (4.2-5.4); White Blood Count 17.8 K/mm3 (4.4-11.0)
[2021-04-24 05:02] LABS: Differential Indicated SCAN CRITERIA MET
[2021-04-24 05:27] LABS: Differential Comment SCANNED
[2021-04-24 05:28] LABS: ALB/GLOB Ratio 0.7 RATIO (0.9-2.4); AST(SGOT) 73 U/L (15-37); Alanine Aminotransfer ALT/SGPT 80 U/L (13-56); Albumin, Serum 2.7 g/dL (3.2-5.0); Alkaline Phosphatase 101 U/L (45-117); Anion Gap 5 (5-15); BUN 12 mg/dL (7-18); BUN/Creat Ratio 15.5 RATIO (10-20); Calcium,Total 8.9 mg/dL (8.5-10.1); Chloride 104 mmol/L (98-107); Creatinine, Serum 0.77 mg/dL (0.55-1.02); EST Glomerular Filtration Rate 80 mL/min (>60); Est Glom Filt Rate - Afr Amer 97 mL/min (>60); Estimated Creatinine Clearance 102.73 ml/min; Glucose 138 mg/dL (74-106); Potassium 3.9 mmol/L (3.5-5.1); Protein, Total 6.7 g/dL (6.4-8.2); Sodium Level 136 mmol/L (136-145)
[2021-04-24 05:31] LABS: T4 Free Direct 1.31 ng/dL (0.76-1.46); Thyroid Stim Hormone (TSH) 0.66 uIU/mL (0.358-3.74)
[2021-04-24] MEDS: metroNIDAZOLE 500 MG/100 ML BAG 100 MG IV ×3 (06:49→22:36)
[2021-04-24] MEDS: Acetaminophen 325 MG Tablet 650 MG PO ×2 (06:51→15:57)
[2021-04-24] MEDS: Metoprolol Tartrate 25 MG Tablet PO ×2 (06:52→20:36)
[2021-04-24] MEDS: oxyCODONE 5 MG Tablet PO ×2 (06:52→15:57)
--- NOTE | 2021-04-24 06:55 | HP.PCM.SX_ITS ---
HPI - General General Date of Admission: 04/23/21 HPI Narrative SERENITY CERVANTES, is a 61 F who presents to the ER due to right upper quadrant abdominal pain which started on Monday night and has not improved. Patient states she has not really eaten or drink since Monday night. Patient did get 2 L of IV fluids in the ER. Patient is on Eliquis due to paroxysmal A. fib?patient does not think she goes into A. fib anymore as she was able to feel it previously but still on the anticoagulation. Patient last took Eliquis Monday a.m. Patient denies any abdominal surgeries. Patient's ultrasound did show thickened gallbladder wall 6 mm / 9 mm, a dilated common bile duct at 9 mm, some pericholecystic fluid, 2 gallstones from 2 cm one 1 cm. Patient's labs white blood count elevated at 22 currently 17 patient is on IV Zosyn. Patient's LFTs were elevated for bilirubin and ALT initially now the AST is also elevated likely due to inflammation. Patient's UA also was consistent with a UTI denies urinary tract symptoms. Culture pending. Patient is on Rocephin 2 g IV daily as well as Flagyl 500 mg IV every 8 hours. [facility] Medical History (Updated 04/24/21 @ 06:[address] Isela Cross MD) Atrial fibrillation Former smoker High cholesterol History of stress test Hypertension Hypothyroidism Obesity Post-menopausal Home Medications Pravastatin 20 mg PO DAILY 12/09/17 [History Last Taken 04/23/21] valsartan 160 mg DAILY 10/19/20 [History Last Taken 04/23/21] apixaban [Eliquis] 5 mg PO BID 04/24/21 [History Last Taken 04/23/21] metoprolol tartrate 25 mg BID 04/24/21 [History Last Taken 04/23/21] spironolactone 50 mg PO DAILY 04/24/21 [History Last Taken 04/23/21] Allergy/AdvReac Type Severity Reaction Status Date / Time imiquimod [From Zyclara] Allergy Shortness Verified 04/23/21 18:50 of breath metoprolol Allergy Rash Verified 04/23/21 18:50 Penicillins [PCN] Allergy Rash Verified 04/23/21 18:50 sulfamethoxazole Allergy Rash Verified 04/23/21 18:50 [From Bactrim] trimethoprim [From Bactrim] Allergy Rash Verified 04/23/21 18:50 DAMIAN Inhibitors AdvReac Other Verified 04/23/21 18:50 Family History (Updated 04/23/21 @ 23:[address] Nazanin Dial MD) Mother CAD (coronary artery disease) s/p CABG x 3. Heart disease Hypertension Father Hypertension Surgical History History of hysterectomy History of tonsillectomy Social History (Updated 04/23/21 @ 23:[address] Nazanin Dial MD) household members: spouse Smoking Status: Former smoker alcohol intake: never substance use type: does not use Vital Signs Vital Signs Vital Signs: 04/23/21 18:48 04/23/21 22:09 04/23/21 23:38 Temperature 97.7 F L 98 F Temperature Source Oral Temporal Pulse Rate 138 H 80 Respiratory Rate 18 16 18 Respiratory Effort Respiratory Depth Respiratory Pattern Blood Pressure 139/88 H 134/86 H Blood Pressure Mean 105 102 Pulse Ox 95 99 Oxygen Delivery Method Room Air Room Air 04/23/21 23:59 04/24/21 00:31 04/24/21 06:52 Temperature 99.2 F H Temperature Source Oral Pulse Rate 119 H 119 H Respiratory Rate 20 H Respiratory Effort Normal Non-Labored Respiratory Depth Normal Respiratory Pattern Normal Blood Pressure 136/66 H 110/55 L Blood Pressure Mean 89 Pulse Ox 93 Oxygen Delivery Method Room Air Room Air Weight Weight: 189 lb 6.033 oz Body Mass Index (BMI) 38.2 Physical Exam Narrative feels warm Const alert, oriented x3 and no apparent distress HEENT normocephalic and head/scalp atraumatic Resp normal respiratory effort Cardio regular rate GI soft to palpation; Negative for non-distended Palpation: tender epigastric, RUQ and other (Voluntary guarding, equivocal rebound); Negative for guarding Extremity no clubbing, cyanosis or edema Neuro CN's II-XII intact bilaterally Psych mental status grossly normal Results Lab / Micro Data Result Diagrams: 04/24/21 04:14 04/24/21 04:14 Labs: Laboratory Results - last 24 hr 04/23/21 19:23: WBC 22.1 H, RBC 5.27, Hgb 15.6 H, Hct 44.4, MCV 84.3, MCH 29.6, MCHC 35.1, RDW Std Deviation 39.9, RDW Coeff of Fabrice 13.0, Plt Count 248, MPV 8.8, Immature Gran % (Auto) 1.000 H, Neut % (Auto) 80.5 H, Lymph % (Auto) 5.8 L, [place] % (Auto) 6.7, Eos % (Auto) 5.8 H, Baso % (Auto) 0.2, Absolute Neuts (auto) 17.8 H, Absolute Lymphs (auto) 1.28, Nucleated RBC % 0, Differential Comment SCANNED 04/23/21 19:23: Sodium 133 L, Potassium 3.9, Chloride 99, Carbon Dioxide 24.0, Anion Gap 10, BUN 13, Creatinine 1.03 H, Estim Creat Clear Calc 40.68, Est GFR (MDRD) Af Amer 70, Est GFR (MDRD) Non-Af 58 L, BUN/Creatinine Ratio 12.6, Glucose 171 H, Calcium 10.6 H 04/23/21 19:23: Troponin I High Sens 4 04/23/21 20:11: Urine Color Yellow, Urine Clarity Sl. Cloudy, Urine pH 5.0, Ur Specific [place] 1.025, Urine Protein 100 H, Urine Glucose (UA) 50 H, Urine Ketones 15 H, Urine Occult Blood 150 H, Urine Nitrite Positive H, Urine Bilirubin 3 H, Urine Urobilinogen 4 H, Ur Leukocyte Esterase 100 H, Urine RBC 5- 10 SEEN, Urine WBC 5-10 SEEN, Ur Squamous Epith Cells 0-5 SEEN, Amorphous Sediment 1+ URATE, Urine Bacteria 3+, WBC Casts 0-5 SEEN, Urine Mucus 0 SEEN 04/23/21 20:17: Total Bilirubin 2.50 H, Direct Bilirubin 0.61 H, AST 42 H, ALT 47, Alkaline Phosphatase 102, Total Protein 7.5, Albumin 3.7, Globulin 3.8 04/23/21 20:17: Lipase 39 L 04/23/21 20:27: PT 16.9 H, INR 1.5 04/23/21 22:00: Lactic Acid 1.4 04/24/21 04:14: WBC 17.8 H, RBC 4.33, Hgb 12.5, Hct 37.6, MCV 86.8, MCH 28.9, MCHC 33.2 D, RDW Std Deviation 42.2, RDW Coeff of Fabrice 13.2, Plt Count 185, MPV 8.9, Immature Gran % (Auto) 0.700, Neut % (Auto) 81.6 H, Lymph % (Auto) 8.5 L, [place] % (Auto) 8.5, Eos % (Auto) 0.5, Baso % (Auto) 0.2, Absolute Neuts (auto) 14.5 H, Absolute Lymphs (auto) 1.52, Nucleated RBC % 0, Differential Comment SCANNED, Diff Path Review July foll 04/24/21 04:14: Sodium 136, Potassium 3.9, Chloride 104, Carbon Dioxide 27.0, Anion Gap 5, BUN 12, Creatinine 0.77, Estim Creat Clear Calc 102.73, Est GFR (MDRD) Af Amer 97, Est GFR (MDRD) Non-Af 80, BUN/Creatinine Ratio 15.5, Glucose 138 H, Calcium 8.9, Total Bilirubin 2.20 H, AST 73 H, ALT 80 H, Alkaline Phosphatase 101, Total Protein 6.7, Albumin 2.7 L, Globulin 4.0, Albumin/Globulin Ratio 0.7 L 04/24/21 04:14: TSH 0.66, Free T4 1.31 Micro: Microbiology 04/23/21 23:37 Nasal Secretion SARS-CoV-2 Antigen (Rapid) - Final Radiology Impression Gallbladder Ultrasound 04/23/21 20:41 IMPRESSION: Cholelithiasis without evidence of acute cholecystitis as well as extrahepatic biliary ductal dilation with common bile duct measuring 9 mm. Hepatic steatosis. Electronically Signed: Ang Avila DO at 22:37 EST , ADDENDUM: 04/23/21 [id number] IMPRESSION: Cholelithiasis without evidence of acute cholecystitis as well as extrahepatic biliary ductal dilation with common bile duct measuring 9 mm. Hepatic steatosis. N.B. : The above Results were Read Back by Ang Avila DO to Nikita Jackson DO, and understanding confirmed on 04/23/2021 22:42:13 (ET). Electronically Signed: Ang Avila DO at 22:37 EST , ADDENDUM: 04/23/21 [id number] IMPRESSION: Cholelithiasis with acute cholecystitis as well as extrahepatic biliary ductal dilation with common bile duct measuring 9 mm. Hepatic steatosis. Electronically Signed: Ang Avila DO at 22:42 EST , N.B. : The above Results were Read Back by Ang Avila DO to Nikita Jackson DO, and understanding confirmed on 04/23/2021 22:42:13 (ET). Chest X-Ray 04/23/21 23:24 IMPRESSION: 1. Findings likely representing atelectasis and/or scarring however somewhat nodular appearance in the right costophrenic angle could potentially represent nodule or airspace disease. Consider short-term interval follow-up if multiplanar imaging was not obtained. Electronically Signed: Ang Avila DO at 0:07 EST , Assessment & Plan Assessment/Plan (1) Acute cholecystitis due to biliary calculus: (2) UTI (urinary tract infection): QUALIFIERS: Hematuria presence: without hematuria Urinary tract infection type: acute cystitis Qualified Code(s): N30.00 - Acute cystitis without hematuria (3) Chronic anticoagulation: PLAN: -Due to patient's anticoagulation?Eliquis, last taken Monday a.m. we will plan for surgery on Monday 8 a.m. -Continue IV Rocephin 2 g daily, Flagyl 500 mg IV every 8 hours due to acute cholecystitis as well as likely UTI?urine culture pending. -1 L bolus for dark urine per patient Reviewed the anatomy with the patient and discussed the procedure: laparoscopic cholecystectomy with possible cholangiograms, possible open. Review risks including but not limited to bleeding, infection, hernia, bile leak, retained gallstones requiring another procedure ERCP- Endoscopic Retrograde Cholangiopancreatography, injury to another organ (bile ducts, common bile duct, small bowel, etc.) and conversion to an open procedure or laparoscopic subtotal cholecystectomy. All questions were answered. Isela Cross M.D. Pager: [phone] [facility] [address] [address] Office: [phone] Procedure Criteria Type of Procedure Procedure Type: Elective Elective Risks - COVID COVID Risk Discussion: The surgeon/proceduralist and patient have discussed in detail the risk of exposure to and/or potential harm posed by the COVID-19 virus with having a surgery/procedure at this time versus the risk of delaying the surgery/procedure. It is not possible to know either the risk of delaying the surgery or procedure or chance of getting an infection with perfect accuracy, but a joint decision was made between the patient and the surgeon/proceduralist to proceed at this time with the scheduled surgery/procedure as indicated on the consent form.
--- NOTE | 2021-04-24 07:20 | PN.HOSP_ITS ---
Subjective Subjective Patient is a 61-year-old lady who presented with right-sided abdominal pain. Imaging studies obtained on admission demonstrated Cholelithiasis without evidence of acute cholecystitis as well as extrahepatic biliary ductal dilation with common bile duct measuring 9 mm. Admitted to general surgery service with consultation placed to the hospitalist se Objective Data Objective Data Vital Signs: Vital Signs Temp Pulse Resp BP Pulse Ox 99 F 119 H 18 110/55 L 93 04/24/21 06:30 04/24/21 06:52 04/24/21 06:30 04/24/21 06:52 04/24/21 06:30 Oxygen Delivery Method Room Air Weight: 85.9 kg Body Mass Index (BMI) 38.2 Intake & Output: Intake and Output for Last 24 Hours 04/22/21 04/23/21 04/24/21 23:59 23:59 23:59 Intake Total 1000 / 1000 2121.5 / 2121.5 Balance 1000 / 1000 2121. / 2121. Lab / Micro Data Result Diagrams: 04/24/21 04:14 04/24/21 04:14 Labs: Laboratory Results - last 24 hr 04/23/21 19:23: WBC 22.1 H, RBC 5.27, Hgb 15.6 H, Hct 44.4, MCV 84.3, MCH 29.6, MCHC 35.1, RDW Std Deviation 39.9, RDW Coeff of Fabrice 13.0, Plt Count 248, MPV 8.8, Immature Gran % (Auto) 1.000 H, Neut % (Auto) 80.5 H, Lymph % (Auto) 5.8 L, [place] % (Auto) 6.7, Eos % (Auto) 5.8 H, Baso % (Auto) 0.2, Absolute Neuts (auto) 17.8 H, Absolute Lymphs (auto) 1.28, Nucleated RBC % 0, Differential Comment SCANNED 04/23/21 19:23: Sodium 133 L, Potassium 3.9, Chloride 99, Carbon Dioxide 24.0, Anion Gap 10, BUN 13, Creatinine 1.03 H, Estim Creat Clear Calc 40.68, Est GFR (MDRD) Af Amer 70, Est GFR (MDRD) Non-Af 58 L, BUN/Creatinine Ratio 12.6, Glucose 171 H, Calcium 10.6 H 04/23/21 19:23: Troponin I High Sens 4 04/23/21 20:11: Urine Color Yellow, Urine Clarity Sl. Cloudy, Urine pH 5.0, Ur Specific [place] 1.025, Urine Protein 100 H, Urine Glucose (UA) 50 H, Urine Ketones 15 H, Urine Occult Blood 150 H, Urine Nitrite Positive H, Urine Bilirubin 3 H, Urine Urobilinogen 4 H, Ur Leukocyte Esterase 100 H, Urine RBC 5- 10 SEEN, Urine WBC 5-10 SEEN, Ur Squamous Epith Cells 0-5 SEEN, Amorphous Sediment 1+ URATE, Urine Bacteria 3+, WBC Casts 0-5 SEEN, Urine Mucus 0 SEEN 04/23/21 20:17: Total Bilirubin 2.50 H, Direct Bilirubin 0.61 H, AST 42 H, ALT 47, Alkaline Phosphatase 102, Total Protein 7.5, Albumin 3.7, Globulin 3.8 04/23/21 20:17: Lipase 39 L 04/23/21 20:27: PT 16.9 H, INR 1.5 04/23/21 22:00: Lactic Acid 1.4 04/24/21 04:14: WBC 17.8 H, RBC 4.33, Hgb 12.5, Hct 37.6, MCV 86.8, MCH 28.9, MCHC 33.2 D, RDW Std Deviation 42.2, RDW Coeff of Fabrice 13.2, Plt Count 185, MPV 8.9, Immature Gran % (Auto) 0.700, Neut % (Auto) 81.6 H, Lymph % (Auto) 8.5 L, [place] % (Auto) 8.5, Eos % (Auto) 0.5, Baso % (Auto) 0.2, Absolute Neuts (auto) 14.5 H, Absolute Lymphs (auto) 1.52, Nucleated RBC % 0, Differential Comment SCANNED, Diff Path Review July04/24/21 04:14: Sodium 136, Potassium 3.9, Chloride 104, Carbon Dioxide 27.0, Anion Gap 5, BUN 12, Creatinine 0.77, Estim Creat Clear Calc 102.73, Est GFR (MDRD) Af Amer 97, Est GFR (MDRD) Non-Af 80, BUN/Creatinine Ratio 15.5, Glucose 138 H, Calcium 8.9, Total Bilirubin 2.20 H, AST 73 H, ALT 80 H, Alkaline Phosphatase 101, Total Protein 6.7, Albumin 2.7 L, Globulin 4.0, Albumin/Globulin Ratio 0.7 L 04/24/21 04:14: TSH 0.66, Free T4 1.31 Micro: Microbiology 04/23/21 23:37 Nasal Secretion SARS-CoV-2 Antigen (Rapid) - Final Radiography Diagnostic Testing: Radiology Impression Gallbladder Ultrasound 04/23/21 20:41 IMPRESSION: Cholelithiasis without evidence of acute cholecystitis as well as extrahepatic biliary ductal dilation with common bile duct measuring 9 mm. Hepatic steatosis. Electronically Signed: Ang Avila DO at 22:37 EST , ADDENDUM: 04/23/212248 IMPRESSION: Cholelithiasis without evidence of acute cholecystitis as well as extrahepatic biliary ductal dilation with common bile duct measuring 9 mm. Hepatic steatosis. N.B. : The above Results were Read Back by Ang Avila DO to Nikita Jackson DO, and understanding confirmed on 04/23/2021 22:42:13 (ET). Electronically Signed: Ang Avila DO at 22:37 EST , ADDENDUM: 04/23/212248 IMPRESSION: Cholelithiasis with acute cholecystitis as well as extrahepatic biliary ductal dilation with common bile duct measuring 9 mm. Hepatic steatosis. Electronically Signed: Ang Avila DO at 22:42 EST , N.B. : The above Results were Read Back by Ang Avila DO to Nikita Jackson DO, and understanding confirmed on 04/23/2021 22:42:13 (ET). Chest X-Ray 04/23/21 23:24 IMPRESSION: 1. Findings likely representing atelectasis and/or scarring however somewhat nodular appearance in the right costophrenic angle could potentially represent nodule or airspace disease. Consider short-term interval follow-up if multiplanar imaging was not obtained. Electronically Signed: Ang Avila, DO at 0:07 EST , Physical Exam Narrative GENERAL: cooperative HEENT: Atraumatic; EYES; Anicteric, Normal Conjunctiva NECK; supple, normal thyroid, RESPIRATORY: Diminished to auscultation CARDIOVASCULAR: Regular S1 S2, GI: soft, normoactive bowel sounds, RUQ tenderness : No Renal angle tenderness; EXTREMITIES: No edema, no clubbing, MUSCULOSKELETAL: no muscle wasting NEURO: Awake; no lateralizing signs. SKIN: No Rash PSYCH; Flat affect Assessment & Plan Assessment/Plan (1) UTI (urinary tract infection): QUALIFIERS: Hematuria presence: without hematuria Urinary tract infection type: acute cystitis Qualified Code(s): N30.00 - Acute cystitis without hematuria (2) Acute renal insufficiency: PLAN: Patient is a 61-year-old lady who presented with right-sided ab dominal pain. Imaging studies obtained on admission demonstrated Cholelithiasis without evidence of acute cholecystitis as well as extrahepatic biliary ductal dilation with common bile duct measuring 9 mm. Admitted to general surgery service with consultation placed to the hospitalist service 1. Biliary colic with suspected acute cholecystitis with extrahepatic biliary ductal dilatation ?Patient has been admitted to regular nursing floor, managed with antibiotics as well as pain management. Patient was admitted to the general surgery service. Plan is for patient to undergo laparoscopic cholecystectomy with possible cholangiograms, possible open on 02/22/2022 in view of patient being on Eliquis 2. Acute cystitis ?Acute cystitis patient is on Rocephin cultures sent 3. Acute renal insufficiency ?Managed with IV fluids subsequent monitoring of electrolytes ordered 4. Hypertension - Blood pressure side. Antihypertensives held resuscitated with IV fluid with subsequent monitoring of vitals Dyslipidemia -Patient is on statin therapy at home held in view of elevated LFTs 6. Class II obesity with BMI of 38.2 ?Weight loss advised 7. Paroxysmal A. fib ?Rate controlled. Patient is on Eliquis held in view of patient anticipated patient's cholecystectomy 8. Hypothyroidism - Patient is on levothyroxine home dose continued 9. DVT prophylaxis ?Patient is on Eliquis which is currently being held in anticipation of patient's surgery Charges/Coding Visit Charges Inpatient E&M: 54213 [facility] Hosp L3
[2021-04-24] MEDS: 0.9% Normal Saline 1,000 ML 999 ML IV (07:48)
[2021-04-24 07:56] LABS: Bedside Glucose 151 mg/dL (70-110)
[2021-04-24 08:36] LABS: Hemoglobin A1c 5.9 % (3.8-5.6)
[2021-04-24] MEDS: Dextrose 5%/0.9% NaCl 1,000 ML 150 ML IV ×3 (09:04→23:41)
--- NOTE | 2021-04-24 10:25 | CASEMGMT ---
ROBERTA GRACIA assessment: Face to Face with patient for initial transition planning/care coordination assessment. ROBERTA GRACIA introduced self and role at [facility], pt voices understanding and consents to assessment. Pt is sitting up in bed in no distress on room air. Pt is A/Ox4 at this time and answers all questions appropriately. Pt's is at bedside during assessment. Care providers, pharmacy, and demographics verified. Presentation: Pt c/o R sided abd pain x2 days, nausea Admitting dx: Acute cholecystitis PCP: Romaine Specialists: Tay, surgeon; Kiel, cardio at [facility]; Raquel, endocrinology at [facility] Preferred Pharmacy: [facility] Insurance: [employer] Prescription Benefit: Yes Living Will/HPOA: Pt states does not have LW/HPOA and declines AD info. LNOK: [place], Living Arrangements: Pt lives with in 1 story home with 2 steps in and states no concerns at home. Pt is independent with ADL's. Transportation: Pt drives self and states no transportation concerns. DME/HHC: Pt states no DME or need for any DME at this time. Pt states no hx of HHC or SNF in the past. Pt states no concerns with going home at time of discharge. 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 Pt states does not smoke cigarettes and rarely drinks ETOH. Pt states no further concerns/needs. CM to follow for any further discharge planning/needs. Advised pt to ask for CM if any further questions/concerns/needs arise, voices understanding. Pt Goal: Home Plan: [place] ROBERTA GRACIA
[2021-04-25] VITALS (16 sets, daily range): BP systolic 130–161; BP diastolic 59–74; PULSE 83–102; RESP 16–18; TEMP 36.8–38.1; O2SAT 92–97; BMI 38.2; BMI 39.6
--- NOTE | 2021-04-25 | GALL_PTH ---
PATIENT: SERENITY CERVANTES LOC: MS3 U#:[id number] AGE/SX: 61/F ROOM: AL312 RE04/23/[address]: Dr. Jaret Clemons DO : 1960 BED: 1 DIS: 04/27/2021 SPEC #: [id number] RECD: 04/26/21 07:37 STATUS: MICAH PACHECO #: [id number] XOCHITL: 04/25/21 00:[address]: Isela Cross DEPT: SURGICAL PATHOLOGY RECD BY: Grabiel Orona ENTERED: 04/26/21 11:25 SP TYPE: GALLBLADDE OTHR DR: MD Dr. Jaret Donato DO Dr. Jeffrey Burkey, MD Tissues: Gallbladder, NOS Procedures: Surgery Specimen Level III Comments: @ Ordering doctor for SUIII edited from to @ by TANI at 04/26/211511 @ Submitting doctor edited from to @ by TANI at 04/26/211511 HEADER OPERATION: Laparoscopic cholecystectomy with IOC PRE-OP DIAGNOSIS: Acute cholecystitis due to biliary calculus TISSUE SUBMITTED: Gallbladder MICROSCOPIC DIAGNOSIS Gallbladder, cholecystectomy: Acute and chronic hemorrhagic and ulcerated cholecystitis and cholelithiasis. RADHA:tito 04/27/2021 MICROSCOPIC DESCRIPTION Slides are reviewed. GROSS DESCRIPTION Received is one container labeled with the patient's name and designated gallbladder. The specimen consists of a gallbladder in three pieces measuring 9 cm in length and up to 4 cm in diameter. The serosa is congested and hemorrhagic. No obvious cystic duct could be identified. The mucosal surface is congested and hemorrhagic. Sections of the gallbladder wall reveal congested and hemorrhagic cut surfaces. The gallbladder wall measures up to 1 cm in thickness. Also present in the container are three ovoid to multifaceted black stones measuring in aggregate 4.5 x 5 x 3.5 and 2 to 4 cm in greatest dimension. Librarian Helper sections are submitted in one cassette. / RADHA:tito 04/26/2021 TC:2 CPT: 28009
[2021-04-25] MEDS: Acetaminophen 325 MG Tablet 650 MG PO (02:32)
[2021-04-25] MEDS: metroNIDAZOLE 500 MG/100 ML BAG 100 MG IV ×3 (05:32→23:42)
[2021-04-25] MEDS: HYDROmorphone 1 MG/ML Syringe IV ×3 (05:46→23:50)
[2021-04-25] MEDS: 0.9% Saline Lock 10 ML Syringe IV ×2 (05:47→23:50)
[2021-04-25] MEDS: Dextrose 5%/0.9% NaCl 1,000 ML 150 ML IV (05:50)
[2021-04-25 06:56] LABS: Absolute Lymphocyte Count 1.61 X10^3/uL (0.83-4.51); Absolute Neutrophil Count 11.2 X10^3/uL (2.0-7.7); Basophil# 0.06 X10^3/uL; Basophil% 0.4 % (0-1); Eosinophils% 0.7 % (0-5); Hematocrit 32.4 % (37-47); Hemoglobin 10.6 g/dL (12.0-15.0); Lymphocyte # 1.61 X10^3/ul (0.83-4.51); Lymphocyte % 11.5 % (19-41); Mean Corp Hgb Conc 32.7 g/dL (32-36); Mean Corpuscular Hgb 28.6 pg (27.0-32.0); Mean Corpuscular Volume 87.3 fL (81-99); Mean Platelet Vol. 9.3 fl (6.2-12.0); Monocyte# 0.97 X10^3/uL; Monocyte% 6.9 % (0-10); NRBC Flagged by Analyzer 0 % (0-5); Neutrophil % 79.9 % (47-70); Platelet Count 155 K/mm3 (150-450); RBC Distribution Width CV 13.4 % (11.6-14.6); RBC Distribution Width SD 43.2 fl (35.1-43.9); Red Blood Count 3.71 M/mm3 (4.2-5.4)
[2021-04-25 07:32] LABS: AST(SGOT) 23 U/L (15-37); Alanine Aminotransfer ALT/SGPT 50 U/L (13-56); Albumin, Serum 2.3 g/dL (3.2-5.0); Alkaline Phosphatase 97 U/L (45-117); Anion Gap 5 (5-15); BUN 7 mg/dL (7-18); Bilirubin, Direct 0.59 mg/dL (0.00-0.30); Calcium,Total 8.7 mg/dL (8.5-10.1); Chloride 113 mmol/L (98-107); EST Glomerular Filtration Rate 90 mL/min (>60); Est Glom Filt Rate - Afr Amer 109 mL/min (>60); Estimated Creatinine Clearance 116.95 ml/min; Globulin 3.7 g/dL (2.2-4.2); Glucose 124 mg/dL (74-106); Potassium 3.7 mmol/L (3.5-5.1); Sodium Level 140 mmol/L (136-145)
--- NOTE | 2021-04-25 07:52 | PN.HOSP_ITS ---
Subjective Subjective Patient seen scheduled to undergo laparoscopic cholecystectomy this a.m. WBC count still remains elevated Objective Data Objective Data Vital Signs: Vital Signs Temp Pulse Resp BP Pulse Ox 99.0 F 100 18 130/59 H 93 04/25/21 02:30 04/25/21 02:30 04/25/21 02:30 04/25/21 02:30 04/25/21 02:30 Oxygen Flow Rate (L/min) 97 Oxygen Delivery Method Room Air Weight: 88.9 kg Body Mass Index (BMI) 39.6 Intake & Output: Intake and Output for Last 24 Hours 04/23/21 04/24/21 04/25/21 23:59 23:59 23:59 Intake Total 1000 / 1000 5742.5 / 5802.5 1137.5 / 1137.5 Balance 1000 / 1000 5742.5 / 5802.5 1137.5 / 1137.5 Lab / Micro Data Result Diagrams: 04/25/21 06:15 04/25/21 06:15 Labs: Laboratory Results - last 24 hr 04/24/21 04:14: Hemoglobin A1c 5.9 H 04/24/21 07:37: POC Glucose 151 H 04/25/21 06:15: WBC 14.0 H, RBC 3.71 L, Hgb 10.6 L, Hct 32.4 L, MCV 87.3, MCH 28.6, MCHC 32.7, RDW Std Deviation 43.2, RDW Coeff of Fabrice 13.4, Plt Count 155, MPV 9.3, Immature Gran % (Auto) 0.600, Neut % (Auto) 79.9 H, Lymph % (Auto) 11.5 L, [place] % (Auto) 6.9, Eos % (Auto) 0.7, Baso % (Auto) 0.4, Absolute Neuts (auto) 11.2 H, Absolute Lymphs (auto) 1.61, Nucleated RBC % 0 04/25/21 06:15: Sodium 140, Potassium 3.7, Chloride 113 H, Carbon Dioxide 22.0, Anion Gap 5, BUN 7, Creatinine 0.70, Estim Creat Clear Calc 116.95, Est GFR (MDRD) Af Amer 109, Est GFR (MDRD) Non-Af 90, BUN/Creatinine Ratio 10.0, Glucose 124 H, Calcium 8.7, Total Bilirubin 1.20 H, Direct Bilirubin 0.59 H, AST 23, ALT 50, Alkaline Phosphatase 97, Total Protein 6.0 L, Albumin 2.3 L, Globulin 3.7 Micro: Microbiology 04/23/21 20:11 Urine Catheter - Catheter Urine Culture - Final Escherichia coli 04/23/21 23:37 Nasal Secretion SARS-CoV-2 Antigen (Rapid) - Final Physical Exam Narrative GENERAL: cooperative HEENT: Atraumatic; EYES; Anicteric, Normal Conjunctiva NECK; supple, normal thyroid, RESPIRATORY: Diminished to auscultation CARDIOVASCULAR: Regular S1 S2, GI: soft, normoactive bowel sounds, RUQ tenderness : No Renal angle tenderness; EXTREMITIES: No edema, no clubbing, MUSCULOSKELETAL: no muscle wasting NEURO: Awake; no lateralizing signs. SKIN: No Rash PSYCH; Flat affect Assessment & Plan Assessment/Plan (1) UTI (urinary tract infection): QUALIFIERS: Hematuria presence: without hematuria Urinary tract infection type: acute cystitis Qualified Code(s): N30.00 - Acute cystitis without hematuria (2) Acute renal insufficiency: PLAN: Patient is a 61-year-old lady who presented with right-sided abdominal pain. Imaging studies obtained on admission demonstrated Cholelithiasis without evidence of acute cholecystitis as well as extrahepatic biliary ductal dilation with common bile duct measuring 9 mm. Admitted to general surgery service with consultation placed to the hospitalist service 1. Biliary colic with suspected acute cholecystitis with extrahepatic biliary ductal dilatation ?Patient has been admitted to regular nursing floor, managed with antibiotics as well as pain management. Patient was admitted to the general surgery service. Plan is for patient to undergo laparoscopic cholecystectomy with possible cholangiograms, possible open on 02/22/2022 in view of patient being on Eliquis ?02/22/2022; Patient seen scheduled to undergo laparoscopic cholecystectomy this a.m. WBC count still remains elevated 2. Acute cystitis ?Acute cystitis patient is on Rocephin cultures sent ?02/22/2022. Urine cultures came back positive for E. coli. Patient is on Rocephin discontinued. 3. Acute renal insufficiency ?Managed with IV fluids subsequent monitoring of electrolytes ordered 4. Hypertension - Blood pressure side. Antihypertensives held resuscitated with IV fluid with subsequent monitoring of vitals Dyslipidemia -Patient is on statin therapy at home held in view of elevated LFTs 6. Class II obesity with BMI of 38.2 ?Weight loss advised 7. Paroxysmal A. fib ?Rate controlled. Patient is on Eliquis held in view of patient anticipated patient's cholecystectomy 8. Hypothyroidism - Patient is on levothyroxine home dose continued 9. DVT prophylaxis ?Patient is on Eliquis which is currently being held in anticipation of patient's surgery Charges/Coding Visit Charges Inpatient E&M: [id number] [facility] Hosp L3
[2021-04-25] MEDS: Metoprolol Tartrate 25 MG Tablet PO ×2 (09:22→21:45)
[2021-04-25] MEDS: Lactated Ringers 1,000 ML 15 ML IV (12:16)
[2021-04-25] MEDS: Bupivacaine Mpf 0.5% 30 ML VIAL (12:55)
--- NOTE | 2021-04-25 12:58 | OP.PCM_ITS ---
Report of Operation Date of Procedure: 04/25/21 Pre-Operative Diagnosis: Acute cholecystitis, cholelithiasis Post-Operative Diagnosis: Acute gangrenous cholecystitis, cholelithiasis Surgery/Procedure Performed:: Laparoscopic subtotal cholecystectomy, placement of 15 Moroc[place] CHANDRA Surgeon: Isela Cross pediatric physiatrist: Zofia Benitez Type of Anesthesia: General/Supplemental Anesthesiologist: Jaret Soriano Special Medications: Flagyl 500 mg IV every 6, Rocephin 2 mg IV every 12 24 hours for acute cholecystitis on the floor Specimen's removed: Gallbladder wall and stones Estimated Blood Loss (mL): 30 cc Description of Procedure: Indications this is a 61 year-old female who developed abdominal pain/nausea/vomiting and on workup was found to have acute cholecystitis cholelithiasis, with a normal common bile duct. Patient last took Eliquis on Monday a.m. thus surgery waiting till this morning. Laparoscopic cholecystectomy was elected. Description procedure: The patient was placed on operating table in supine position. General Anesthesia was induced. A timeout was completed verifying correct patient, procedure, site, position and special equipment prior to beginning procedure. The abdomen was prepped and draped in usual sterile fashion. An incision was made in the natural skin line above the umbilicus. The fascia was elevated and incised. The peritoneum was elevated and incised. Entry into the peritoneum was confirmed visually and no bowel was noted in the vicinity of the incision. [place] trocar was placed. The abdomen was insufflated with carbon dioxide to a pressure of 12-15 mmHg. Patient tolerated insufflation well. The laparoscope was then inserted and abdomen inspected. No injuries from initial trocar placement were noted. Additional trochars were then inserted in the following locations 5 mm trocar in the epigastrium and 2 more 5 mm trochars along the right costal margin. The abdomen was inspected the gallbladder is noted to be tense and adherent to the lateral wall right upper quadrant. The table is placed in reverse Trendelenburg position with the right side up. Omentum overlying the gallbladder was gently pulled down. Due to the dense inflammation aspiration needle was used. The dome of the gallbladder was grasped with tooth grasper passed through the lateral port and retracted over the dome of the liver. Due to dense adhesions at the neck of the gallbladder as well unable to clearly see the cystic duct/cystic artery. Elected to convert to a subtotal cholecystectomy. Harmonic was used to remove the gallbladder wall. Endoscopic retrieval bag was used to collect the stones as well the anterior gallbladder wall. Due to limited visualization due to body habitus and the extra 5 mm port was placed to the right of the umbilicus for retraction. The mucosa of the remaining gallbladder wall was coagulated using the Bovie. There was noted to be may be a small amount of bile. 15 [place] CHANDRA was placed in the gallbladder fossa. Secondary trochars removed under direct vision. No bleeding was noted the trocar sites. The laparoscope was withdrawn and umbilical trocar removed. The abdomen was allowed to collapse. The fascia of the 12 mm trocar was closed with a 2 [id number] 0 PDS sutures and 1 interrupted due to needing to enlarge it to remove the gallstones and gallbladder wall. The skin was closed with sutures of 4-0 Monocryl and Steri-Strips. The orogastric tube was removed and the patient was extubated. The patient tolerated procedure well and was taken to the postanesthesia care unit in stable condition. Complications none
[2021-04-25] MEDS: 0.9% Normal Saline 1,000 ML 100 ML IV (15:45)
[2021-04-25] MEDS: oxyCODONE 5 MG Tablet PO (20:03)
[2021-04-26] VITALS (8 sets, daily range): BP systolic 135–148; BP diastolic 71–87; PULSE 93–109; RESP 16–18; TEMP 36.7–37.8; O2SAT 91–97
[2021-04-26] MEDS: 0.9% Normal Saline 1,000 ML 100 ML IV (01:22)
[2021-04-26] MEDS: metroNIDAZOLE 500 MG/100 ML BAG 100 MG IV ×3 (05:40→22:51)
[2021-04-26] MEDS: oxyCODONE 5 MG Tablet PO ×3 (05:51→22:57)
[2021-04-26 06:42] LABS: Absolute Lymphocyte Count 1.72 X10^3/uL (0.83-4.51); Absolute Neutrophil Count 11.2 X10^3/uL (2.0-7.7); Basophil# 0.03 X10^3/uL; Basophil% 0.2 % (0-1); Eosinophil# 0.01 X10^3/uL; Eosinophils% 0.1 % (0-5); Hematocrit 31.7 % (37-47); Hemoglobin 10.6 g/dL (12.0-15.0); Lymphocyte # 1.72 X10^3/ul (0.83-4.51); Lymphocyte % 12.1 % (19-41); Mean Corp Hgb Conc 33.4 g/dL (32-36); Mean Corpuscular Hgb 29.5 pg (27.0-32.0); Mean Corpuscular Volume 88.3 fL (81-99); Mean Platelet Vol. 9.4 fl (6.2-12.0); Monocyte# 1.17 X10^3/uL; Monocyte% 8.2 % (0-10); NRBC Flagged by Analyzer 0 % (0-5); Neutrophil # 11.17 X10^3/uL (2.7-7.7); Neutrophil % 78.3 % (47-70); Platelet Count 180 K/mm3 (150-450); RBC Distribution Width CV 13.5 % (11.6-14.6); RBC Distribution Width SD 44.3 fl (35.1-43.9); Red Blood Count 3.59 M/mm3 (4.2-5.4); White Blood Count 14.3 K/mm3 (4.4-11.0)
[2021-04-26 07:18] LABS: AST(SGOT) 13 U/L (15-37); Alanine Aminotransfer ALT/SGPT 36 U/L (13-56); Alkaline Phosphatase 85 U/L (45-117); Anion Gap 5 (5-15); BUN 6 mg/dL (7-18); BUN/Creat Ratio 8.6 RATIO (10-20); Bilirubin, Direct 0.27 mg/dL (0.00-0.30); Calcium,Total 8.6 mg/dL (8.5-10.1); Chloride 112 mmol/L (98-107); EST Glomerular Filtration Rate 90 mL/min (>60); Est Glom Filt Rate - Afr Amer 109 mL/min (>60); Estimated Creatinine Clearance 121.94 ml/min; Globulin 3.8 g/dL (2.2-4.2); Glucose 129 mg/dL (74-106); Potassium 3.7 mmol/L (3.5-5.1); Protein, Total 5.8 g/dL (6.4-8.2); Sodium Level 140 mmol/L (136-145)
--- NOTE | 2021-04-26 07:50 | PCM.PN.SRG ---
Subjective Subjective Patient tolerated clears yesterday. Had 80 cc out the NG until midnight and then had only 10 from midnight on. Objective Data Objective Data Vital Signs: Vital Signs Temp Pulse Resp BP Pulse Ox 98.4 F 106 H 18 145/71 H 97 04/26/21 01:19 04/26/21 01:19 04/26/21 01:19 04/26/21 01:19 04/26/21 01:19 Oxygen Flow Rate (L/min) 2 Oxygen Delivery Method Nasal Cannula Weight: 204 lb 5.896 oz Body Mass Index (BMI) 39.6 Intake & Output: Intake and Output for Last 24 Hours 04/24/21 04/25/21 04/26/21 23:59 23:59 23:59 Intake Total 5742.5 / 5802.5 2958.5 / 3398.5 2151.67 / 2151.67 Output Total 120 / 750 640 / 640 Balance 5742.5 / 5802.5 2838.5 / 2648.5 1511.67 / 1511.67 Lab / Micro Data Result Diagrams: 04/26/21 06:10 04/26/21 06:10 Labs: Laboratory Results - last 24 hr 04/26/21 06:10: WBC 14.3 H, RBC 3.59 L, Hgb 10.6 L, Hct 31.7 L, MCV 88.3, MCH 29.5, MCHC 33.4, RDW Std Deviation 44.3 H, RDW Coeff of Fabrice 13.5, Plt Count 180, MPV 9.4, Immature Gran % (Auto) 1.100 H, Neut % (Auto) 78.3 H, Lymph % (Auto) 12.1 L, [place] % (Auto) 8.2, Eos % (Auto) 0.1, Baso % (Auto) 0.2, Absolute Neuts (auto) 11.2 H, Absolute Lymphs (auto) 1.72, Nucleated RBC % 0 04/26/21 06:10: Sodium 140, Potassium 3.7, Chloride 112 H, Carbon Dioxide 23.0, Anion Gap 5, BUN 6 L, Creatinine 0.70, Estim Creat Clear Calc 121.94, Est GFR (MDRD) Af Amer 109, Est GFR (MDRD) Non-Af 90, BUN/Creatinine Ratio 8.6 L, Glucose 129 H, Calcium 8.6, Total Bilirubin 0.70, Direct Bilirubin 0.27, AST 13 L, ALT 36, Alkaline Phosphatase 85, Total Protein 5.8 L, Albumin 2.0 L, Globulin 3.8 Micro: Microbiology 04/23/21 20:35 Blood Culture (Wb) - Left Hand Blood Culture - Preliminary No growth in 48 hours. 04/23/21 20:27 Blood Culture (Wb) - Left Wrist Blood Culture - Preliminary No growth in 48 hours. 04/23/21 20:11 Urine Catheter - Catheter Urine Culture - Final Escherichia coli 04/23/21 23:37 Nasal Secretion SARS-CoV-2 Antigen (Rapid) - Final Physical Exam Resp normal respiratory effort Cardio regular rate GI GI Narrative: Abdomen: Soft, nondistended, tender near incision's dressed clean dry and intact, no peritoneal signs?CHANDRA bilious but minimal output Assessment & Plan Assessment/Plan (1) S/P laparoscopic cholecystectomy: PLAN: Patient does have some amount of bilious output from the CHANDRA due to the laparoscopic subtotal cholecystectomy however has dropped off since midnight. We will plan to continue to monitor if it does increase may need to have an ERCP. Will advance patient's diet to full's if tolerates will advance to regular. Continue on IV Cipro/Flagyl. Isela Cross M.D. Pager: [phone] [facility] [address] [place] [address], [address] [place] [address] Office: [phone]
[2021-04-26] MEDS: Metoprolol Tartrate 25 MG Tablet PO ×2 (08:15→20:36)
[2021-04-26] MEDS: Morphine 2 MG/ML Syringe IV (08:15)
[2021-04-26 13:55] LABS: Pathologist Review Reviewed
[2021-04-26] MEDS: Acetaminophen 325 MG Tablet 650 MG PO ×2 (14:23→20:37)
--- NOTE | 2021-04-26 15:30 | PN.HOSP_ITS ---
Subjective Subjective Tolerating PO. Objective Data Objective Data Vital Signs: Vital Signs Temp Pulse Resp BP Pulse Ox 37.8 C H 109 H 16 148/87 H 91 04/26/21 14:26 04/26/21 14:26 04/26/21 14:26 04/26/21 14:26 04/26/21 14:26 Oxygen Flow Rate (L/min) 2 Oxygen Delivery Method Room Air Weight: 92.7 kg Body Mass Index (BMI) 39.6 Intake & Output: Intake and Output for Last 24 Hours 04/24/21 04/25/21 04/26/21 23:59 23:59 23:59 Intake Total 5742.5 / 5802.5 2958.5 / 3398.5 3171.67 / 3171.67 Output Total 120 / 750 900 / 900 Balance 5742.5 / 5802.5 2838.5 / 2648.5 2271.67 / 2271.67 Lab / Micro Data Result Diagrams: 04/26/21 06:10 04/26/21 06:10 Labs: Laboratory Results - last 24 hr 04/24/21 04:14: Diff Path Review Reviewed 04/26/21 06:10: WBC 14.3 H, RBC 3.59 L, Hgb 10.6 L, Hct 31.7 L, MCV 88.3, MCH 29.5, MCHC 33.4, RDW Std Deviation 44.3 H, RDW Coeff of Fabrice 13.5, Plt Count 180, MPV 9.4, Immature Gran % (Auto) 1.100 H, Neut % (Auto) 78.3 H, Lymph % (Auto) 12.1 L, [place] % (Auto) 8.2, Eos % (Auto) 0.1, Baso % (Auto) 0.2, Absolute Neuts (auto) 11.2 H, Absolute Lymphs (auto) 1.72, Nucleated RBC % 0 04/26/21 06:10: Sodium 140, Potassium 3.7, Chloride 112 H, Carbon Dioxide 23.0, Anion Gap 5, BUN 6 L, Creatinine 0.70, Estim Creat Clear Calc 121.94, Est GFR (MDRD) Af Amer 109, Est GFR (MDRD) Non-Af 90, BUN/Creatinine Ratio 8.6 L, Glucose 129 H, Calcium 8.6, Total Bilirubin 0.70, Direct Bilirubin 0.27, AST 13 L, ALT 36, Alkaline Phosphatase 85, Total Protein 5.8 L, Albumin 2.0 L, Globulin 3.8 Micro: Microbiology 04/23/21 20:35 Blood Culture (Wb) - Left Hand Blood Culture - Preliminary No growth in 48 hours. 04/23/21 20:27 Blood Culture (Wb) - Left Wrist Blood Culture - Preliminary No growth in 48 hours. 04/23/21 20:11 Urine Catheter - Catheter Urine Culture - Final Escherichia coli 04/23/21 23:37 Nasal Secretion SARS-CoV-2 Antigen (Rapid) - Final Physical Exam Const alert Resp normal respiratory effort, no retractions, no use of accessory muscles and clear to auscultation bilaterally Cardio regular rate, regular rhythm, S1 normal heart sound and S2 normal heart sound GI GI Narrative: hypoactive BS. Assessment & Plan Assessment/Plan (1) UTI (urinary tract infection): QUALIFIERS: Urinary tract infection type: acute cystitis Hematuria presence: without hematuria Qualified Code(s): N30.00 - Acute cystitis without hematuria (2) S/P laparoscopic cholecystectomy: PLAN: 1. UTI E. coli on ceftriaxone can change to fluoroquinolone upon discharge (cipro 500 BID or levaquin 750/daily through the ) 2. Acute cholecystitis s/p lap germania on 04/[address] continue CTX/metronidazole 3. paroxysmal afib continue metoprolol tartrate resume apixaban when ok with general surgery Medically stable for discharge. The hospitalist service will sign off at this time. Please do not hesitate to contact if additional questions or concerns arise. Charges/Coding Visit Charges Inpatient E&M: 40822 Subs Hosp L2
[2021-04-27 02:50] VITALS: O2SAT 88
[2021-04-27 02:54] VITALS: BP 146/80; PULSE 88; RESP 18; TEMP 36.1; O2SAT 93
--- NOTE | 2021-04-27 06:25 | NURSING ---
pt states she is passing flatus as of this AM
[2021-04-27] MEDS: metroNIDAZOLE 500 MG/100 ML BAG 100 MG IV (06:27)
[2021-04-27 07:21] VITALS: BP 151/75; PULSE 96; RESP 16; TEMP 37.3; O2SAT 92
[2021-04-27 07:25] VITALS: PULSE 96
[2021-04-27] MEDS: Metoprolol Tartrate 25 MG Tablet PO (07:25)
--- NOTE | 2021-04-27 08:40 | PN.SURG_ITS ---
Subjective Subjective Patient is doing well tolerating regular diet still having minimal output from her CHANDRA-?serous Objective Data Objective Data Vital Signs: Vital Signs Temp Pulse Resp BP Pulse Ox 99.1 F 96 16 151/75 H 92 04/27/21 07:21 04/27/21 07:25 04/27/21 07:21 04/27/21 07:21 04/27/21 07:21 Oxygen Flow Rate (L/min) 2 Oxygen Delivery Method Room Air Weight: 204 lb 5.896 oz Body Mass Index (BMI) 39.6 Intake & Output: Intake and Output for Last 24 Hours 04/25/21 04/26/21 04/27/21 23:59 23:59 23:59 Intake Total 2958.5 / 3398.5 3950.67 / 3950.67 Output Total 120 / 750 1200 / 1200 0 / 0 Balance 2838.5 / 2648.5 2750.67 / 2750.67 0 / 0 Lab / Micro Data Result Diagrams: 04/26/21 06:10 04/26/21 06:10 Labs: Laboratory Results - last 24 hr 04/24/21 04:14: Diff Path Review Reviewed Micro: Microbiology 04/23/21 20:35 Blood Culture (Wb) - Left Hand Blood Culture - Preliminary No growth in 48 hours. 04/23/21 20:27 Blood Culture (Wb) - Left Wrist Blood Culture - Preliminary No growth in 48 hours. 04/23/21 20:11 Urine Catheter - Catheter Urine Culture - Final Escherichia coli 04/23/21 23:37 Nasal Secretion SARS-CoV-2 Antigen (Rapid) - Final Physical Exam Resp normal respiratory effort Cardio regular rate GI GI Narrative: Abdomen: Soft, nondistended, tender near incision's dressed clean dry and intact, no peritoneal signs, CHANDRA serous Assessment & Plan Assessment/Plan (1) S/P laparoscopic cholecystectomy: (2) UTI (urinary tract infection): QUALIFIERS: Hematuria presence: without hematuria Urinary tract infection type: acute cystitis Qualified Code(s): N30.00 - Acute cystitis without hematuria (3) Chronic anticoagulation: PLAN: Patient still having minimal output from the CHANDRA and serous in nature. Plan to likely remove after breakfast today. Addendum: Patient tolerated breakfast still had minimal output from CHANDRA mostly serous. Removed at bedside patient tolerated well. We will send a prescription for patient for Levaquin 750 mg p.o. daily until the 18th for her UTI okay to stop the Flagyl on discharge Okay to restart anticoagulation?Yonas in 2 days Isela Cross M.D. Pager: [phone] [facility] [address] [place] [address], [facility], [address] [place] [address] Office: [phone]
--- NOTE | 2021-04-27 09:02 | EX.PCM.DISCH ---
Discharge Instructions Diet Discharge Diet: Light diet - advance as tolerated Activity Discharge Activity: May Not Drive (while taking narcotic pain medications.) May shower in (days): 1 Lifting Restrictions: no lifting >20 lbs x 2 wks, no strenuous exercise for 4 wks Dressing / Incision Call your doctor if your incision/area has: Continuous Slow Oozing, Sudden Increased Bleeding, Increased Pain/ Swelling, Increased Redness, Foul Smelling Discharge and Swelling at the incision site Call your doctor if you observe: Fever of 101 or Higher Remove Dressing in: 2 days Cleanse incision/area with: Soap & Water Additional Dressing/Incision Instructions:: Steri-Strips will fall off in 7 to 10 days, if they do not fall off okay to remove after 10 days. Follow Up Care Please Follow Up With: Isela Cross MD When: Call the office for a follow-up appointment 1-2 weeks; after 5 PM and on the weekends call [phone] with any concerns. Test Results: Test results from this visit will be discussed in further detail at your follow-up appointment, if applicable. Discharge Plan Admission Admit Date/Time: 04/23/21 23:37 Attending Provider: Jaret Clemons Primary Care Provider: Casey Gavin Consulting Providers: Nazanin Dial Discharge Orders/Prescriptions Prescriptions: New levofloxacin 750 mg tablet 750 mg PO DAILY Qty: 3 RF: 0 oxycodone-acetaminophen 5-325 mg tablet 1 tab PO Q6H PRN (Reason: pain) 3 Days Qty: 7 RF: 0 Continued Pravastatin 20 MG tablet 20 mg PO DAILY RF: 0 valsartan 160 mg DAILY RF: 0 spironolactone 50 mg tablet 50 mg PO DAILY RF: 0 metoprolol tartrate 25 mg tablet 25 mg BID RF: 0 Held Eliquis 5 mg Tablet 5 mg PO BID RF: 0 Hold Instructions: Resume on 04/29/21. Referrals / Follow Up: Casey Gavin MD [Primary Care Provider] - Disposition Disposition (needs filled in before D/C Order can be placed): Home, Self Care
--- NOTE | 2021-04-27 10:05 | PCM.DC.SUM ---
Providers Date of Admission: 04/23/21 Primary Care Physician: Dr. Casey Gavin MD Consultations 04/23/21 23:38 Consult: Hospitalist Routine Consulting Provider: Nazanin Dial Reason for Consult: hospital stay EMERGENT Consult: Yes MD Notified: Yes Date Notified: 04/23/21 Time Notified: 23:38 Method of Notification: Verbal Method of Consult:: In-Person Reason For Visit: ACUTE CHOLEYCYSTITIS Diagnosis Discharge Diagnosis (1) S/P laparoscopic cholecystectomy: Status: Acute Code(s): Z90.49 - Acquired absence of other specified parts of digestive tract (2) UTI (urinary tract infection): Status: Acute Code(s): N39.0 - Urinary tract infection, site not specified Qualifiers: Hematuria presence: without hematuria Urinary tract infection type: acute cystitis Qualified Code(s): N30.00 - Acute cystitis without hematuria (3) Chronic anticoagulation: Status: Acute Code(s): Z79.01 - 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 Patient was found to have an E. coli UTI treated with Rocephin was DC'd with Levaquin until 04/30. Due to patient's long-term anticoagulation of Eliquis patient's laparoscopic cholecystectomy was done on 04/25/2021 as patient last took the Eliquis Monday a.m. Due to the extreme formation substance adhesions patient did have a laparoscopic subtotal cholecystectomy with placement of CHANDRA drain. Postoperatively patient did well continue to monitor CHANDRA drain initially it was bilious but it did improve and there was minimal output was eating. CHANDRA was able to be removed prior to DC. Patient was tolerating diet bowel function ambulating and pain was controlled. Physical Exam Const alert, oriented x3 and no apparent distress Resp normal respiratory effort Cardio regular rate GI GI Narrative: Abdomen: Soft, nondistended, tender near incision's dressed clean dry and intact, no peritoneal signs, CHANDRA serous?removed at bedside Psych affect normal Weight / BMI Weight Weight: 204 lb 5.896 oz Body Mass Index (BMI) 39.6 ABG / Lab / Microbiology Data Result Diagrams: 04/26/21 06:10 04/26/21 06:10 Laboratory: Laboratory Results - last 24 hr 04/24/21 04:14: Diff Path Review Reviewed Microbiology: Microbiology 04/23/21 20:35 Blood Culture (Wb) - Left Hand Blood Culture - Preliminary No growth in 48 hours. 04/23/21 20:27 Blood Culture (Wb) - Left Wrist Blood Culture - Preliminary No growth in 48 hours. 04/23/21 20:11 Urine Catheter - Catheter Urine Culture - Final Escherichia coli 04/23/21 23:37 Nasal Secretion SARS-CoV-2 Antigen (Rapid) - Final D/C Instructions Discharge Diet: Light diet - advance as tolerated May shower in (days): 1 Call your doctor if your incision/area has: Continuous Slow Oozing, Sudden Increased Bleeding, Increased Pain/ Swelling, Increased Redness, Foul Smelling Discharge and Swelling at the incision site Call your doctor if you observe: Fever of 101 or Higher Cleanse incision/area with: Soap & Water Additional Dressing/Incision Instructions: Steri-Strips will fall off in 7 to 10 days, if they do not fall off okay to remove after 10 days. Please Follow Up With: Isela Cross MD When: Call the office for a follow-up appointment 1-2 weeks; after 5 PM and on the weekends call [phone] with any concerns. Meaningful Use Info Meaningful Use Diagnoses (Choose all that apply): None applicable Discharge Plan Admission Admit Date/Time: 04/23/21 23:37 Attending Provider: Jaret Clemons Primary Care Provider: Casey Gavin Consulting Providers: Nazanin Dial Discharge Orders/Prescriptions Prescriptions: New levofloxacin 750 mg tablet 750 mg PO DAILY Qty: 3 RF: 0 oxycodone-acetaminophen 5-325 mg tablet 1 tab PO Q6H PRN (Reason: pain) 3 Days Qty: 7 RF: 0 Continued Pravastatin 20 MG tablet 20 mg PO DAILY RF: 0 valsartan 160 mg DAILY RF: 0 spironolactone 50 mg tablet 50 mg PO DAILY RF: 0 metoprolol tartrate 25 mg tablet 25 mg BID RF: 0 Held Eliquis 5 mg Tablet 5 mg PO BID RF: 0 Hold Instructions: Resume on 04/29/21. Referrals / Follow Up: Casey Gavin MD [Primary Care Provider] - Disposition Disposition (needs filled in before D/C Order can be placed): Home, Self Care
[2021-04-27] MEDS: oxyCODONE 5 MG Tablet PO (11:44)
--- NOTE | 2021-04-27 12:38 | CHAPLAIN ---
Type of Pastoral Visit _x__ Initial Visit ___ Follow-up Visit ___ On-call Visit ___ General Patient Visit ___ Spiritual Assessment ___ Family Conference ___ Bereavement ___ Rapid Response ___ Code Blue ___ Other (describe below) Pastoral Care Referral From _x__ Patient ___ Family ___ Nurse ___ Physician ___ Metal Stamping Machine Operator ___ Music Promoter ___ Other (describe below) Sacrament/Intervention _x__ Active listening ___ Anointing ___ Worship ___ Bereavement ___ Communion ___ Joceline exploration ___ ___ Life review ___ Prayer ___ Reconciliation ___ Sacrament of Sick ___ Supportive presence ___ Wedding ___ Other (describe below) Pastoral Comments patient is doing well and expecting discharge soon; spouse is with her and waiting to take her home
== END 2021-04-27 12:06 | disposition home or self-care (01) | DRG 418 ==
LOC: ED 21:37 → MS3 04-24 00:08
PROVIDERS: Internal Medicine; Surgery; Admitting Provider Family Medicine; Emergency Provider Student in an Organized Health Care Education/Training Program; PCP Family Medicine
PROC: 0FB44ZZ Excision of Gallbladder, Percutaneous Endoscopic Approach (ICD-10-PCS; CPT 47610; principal; 2021-04-25 10:00)
DX: K80.00 Calculus of gallbladder with acute cholecystitis without obstruction (principal); E87.1 Hypo-osmolality and hyponatremia; K82.A1 Gangrene of gallbladder in cholecystitis; I48.0 Paroxysmal atrial fibrillation; E86.0 Dehydration; B96.20 Unspecified Escherichia coli [E. coli] as the cause of diseases classified elsewhere; E03.9 Hypothyroidism, unspecified; E78.5 Hyperlipidemia, unspecified; E78.00 Pure hypercholesterolemia, unspecified; I10 Essential (primary) hypertension; Z68.38 Body mass index [BMI] 38.0-38.9, adult; Z20.822 Contact with and (suspected) exposure to COVID-19; E66.9 Obesity, unspecified; N28.9 Disorder of kidney and ureter, unspecified; Z87.891 Personal history of nicotine dependence; Z78.0 Asymptomatic menopausal state; Z79.01 Long term (current) use of anticoagulants; Z79.1 Long term (current) use of non-steroidal anti-inflammatories (NSAID)
CPT/HCPCS: 36415; 71045; 76705; 80048; 80053; 80076; 81001; 82962; 83036; 83605; 83690; 84439; 84443; 84484; 85025; 85610; 87040; 87077; 87086; 87088; 87186; 87426; 88304; 93005; 97802; 99285; J7030; J7120; A4216; J0696; J2405

== ENCOUNTER 2025-02-14 08:53 | Emergency (ER) | payer MEDICARE, OTHER, SELFPAY ==
[2025-02-14 08:54] VITALS: BP 119/89; PULSE 76; RESP 14; TEMP 36.6; O2SAT 100; BMI 35.3
--- NOTE | 2025-02-14 09:08 | CT_ITS ---
PROCEDURE: ABDOMEN/PELVIS W IV CONT ONLY 02/14/2025 REASON FOR EXAM: MID LEFT ABD PAIN, radiates to back. Surgical history: Cholecystectomy and hysterectomy. TECHNIQUE: Procedure Code: [id number] Modality: CT Procedure: ABDOMEN/PELVIS W IV CONT ONLY Coronal and Sagittal reconstruction series were provided. CONTRAST: Isovue-300 VOLUME: 80 mL One or more dose reduction techniques were used (e.g., Automated exposure control, adjustment of the mA and/or kV according to patient size, use of iterative reconstruction technique. RADIATION DOSE SUMMARY: CTDlvol: 13.30, 19.27 mGy DLP: 986.34 mGycm COMPARISON: None. FINDINGS: LUNG BASES: No basilar airspace consolidation or pleural effusion. Minimal dependent atelectasis bilaterally. LIVER: Mildly enlarged measuring 17.6 cm in length. No focal lesion seen. GALLBLADDER: Surgically absent. BILE DUCTS: Mildly dilated bile ducts without an obstructing lesion seen. The CBD measures up to 9.1 mm with tapering to normal caliber distally. PANCREAS: Unremarkable. SPLEEN: Unremarkable. ADRENAL GLANDS: Unremarkable. KIDNEYS: Unremarkable. The kidneys enhance symmetrically. Hypodense left renal lesions, the largest is parapelvic measuring 1.6 cm, consistent with cysts. No hydronephrosis or hydroureter. STOMACH AND BOWEL: No obstruction or perforation. No wall thickening. Colonic diverticulosis. No CT evidence of colitis or acute diverticulitis. APPENDIX: Normal-appearing appendix. No CT evidence for appendicitis. RETRO/PERITONEUM: No free fluid. No free air. LYMPH NODES: No lymphadenopathy. PELVIC ORGANS: Unremarkable urinary bladder. Prior hysterectomy. VASCULATURE: No aortic aneurysm. ABDOMINAL WALL AND SOFT TISSUES: Small fat-containing supraumbilical and umbilical hernias. BONES: No fracture or suspicious osseous abnormality. Bilateral L4-L5 and L5-S1 facet arthropathy. Associated grade 1 anterolisthesis of L5 on S1 with [id number]-right L5-S1 neural foraminal stenosis. CT/Abdomen/Pelvis W IV Cont ONLY IMPRESSION: 1. Colonic diverticulosis without signs of diverticulitis. 2. Mild biliary ductal dilation. No obstructing lesion seen. Findings can be seen in the postcholecystectomy state however would correlate with clinical signs of cholestasis. 3. Left renal cysts. 4. Hepatomegaly. Reading Location: [id number]
--- NOTE | 2025-02-14 09:09 | ED.VIS.GI ---
HPI HPI - GI History of Present Illness Chief Complaint: Abd Pain Informant: patient Narrative Narrative: 64-year-old female with history of hypertension, hyperlipidemia, prior atrial fibrillation attributed to thyroid issue (reportedly resolved), status post cholecystectomy, and status post hysterectomy (2007) presents with left-sided lateral abdominal/flank pain radiating into the left low back since Monday morning after breakfast (about 3 days). Initially dull, intermittent, and mild; this morning became severe, stabbing, and sharp when moving (noted after getting into shower). Movement consistently worsens pain. Sometimes worsens about 1 hour after eating; patient has tried bland foods (e.g., cottage cheese) and eating less. No known strain or injury. Denies urinary problems. Bowel movements normal, no blood, no diarrhea; pain does not improve after bowel movement. Denies problems breathing or coughing and denies shortness of breath. Pain sometimes eases to the point she wonders if it resolved, but it remains present. Has not taken analgesics to avoid masking symptoms. On [facility] Medical History (Updated 02/14/25 @ 12:[address] Eros Alvarez MD) Post-menopausal History of stress test Hypothyroidism Former smoker Atrial fibrillation Obesity High cholesterol Hypertension Home Medications ?Medication ?Instructions ?Recorded ?Last Taken ?Type Pravastatin 20 mg PO DAILY Check with primary 12/09/17 04/23/21 History doctor valsartan 160 mg DAILY Check with primary 10/19/20 04/23/21 History doctor apixaban 5 mg tablet (Eliquis) 5 mg PO BID Check with primary 04/24/21 04/23/21 History Held on 04/27/21. doctor Instructions: Resume on 04/29/21. metoprolol tartrate 25 mg tablet 25 mg BID Check with primary doctor 04/24/21 04/23/21 History spironolactone 50 mg tablet 50 mg PO DAILY Check with primary 04/24/21 04/23/21 History doctor levofloxacin 750 mg tablet 750 mg PO DAILY #3 tabs 04/27/21 Unknown Rx dicyclomine 20 mg tablet 20 mg PO Q6H PRN PRN abdominal 02/14/25 Unknown Rx discomfort #16 tabs tramadol 50 mg tablet 50 mg PO Q4H PRN PRN Pain 3 days 12/05/25 Unknown Rx #12 tabs Allergy/AdvReac Type Severity Reaction Status Date / Time imiquimod (From Zyclara) Allergy Shortness Verified 02/14/25 08:56 of breath metoprolol Allergy Rash Verified 02/14/25 08:56 Penicillins (PCN) Allergy Rash Verified 02/14/25 08:56 sulfamethoxazole (From Allergy Rash Verified 02/14/25 08:56 Bactrim) trimethoprim (From Bactrim) Allergy Rash Verified 02/14/25 08:56 DAMIAN Inhibitors AdvReac Other Verified 02/14/25 08:56 Family History Mother CAD (coronary artery disease) s/p CABG x 3. Heart disease Hypertension Father Hypertension Surgical History (Updated 02/14/25 @ 09:27 by Jasmina Cox) History of cholecystectomy S/P laparoscopic cholecystectomy History of hysterectomy History of tonsillectomy Social History household members: spouse Smoking Status: Former smoker alcohol intake: never substance use type: does not use ROS ROS ED Constitutional Constitutional ED: Denies chills or fever(s) Eyes Eyes: Denies change in vision or diplopia ENT ENT ED: Denies rhinorrhea or sore throat Cardiovascular Cardiovascular: Denies chest pain or palpitations Respiratory/Chest Respiratory/Chest: Denies cough or dyspnea Gastrointestinal Gastrointestinal: Reports abdominal pain; Denies diarrhea, nausea or vomiting Genitourinary Genitourinary ED: Denies dysuria or hematuria Musculoskeletal Musculoskeletal: Reports back pain; Denies neck pain Integumentary Denies abscess or rash Neurologic Neurologic: Denies headache(s), paresthesias or weakness Psychiatric Psychiatric: Denies anxiety or suicidal thoughts EXAM Physical Exam Const Vital Signs: 02/14/25 08:54 02/14/25 10:22 02/14/25 12:09 Temperature 97.8 F 98.6 F Temperature Source Temporal Pulse Rate 76 67 66 Respiratory Rate 14 18 18 Blood Pressure 119/89 H 124/69 H 104/61 Blood Pressure Mean 99 87 75 Pulse Ox 100 98 99 Oxygen Delivery Method Room Air Room Air Positive well nourished and well developed General Appearance ED: well developed and NAD HEENT Reports moist mucous membranes normocephalic and atraumatic Eyes PERRL and EOMs intact bilaterally Neck full ROM and supple Resp normal respiratory effort and clear to auscultation bilaterally Cardio regular rate, regular rhythm and no murmurs GI non-distended GI Narrative: Tender in the left lateral mid abdomen. No guarding or rebound. Otherwise benign abdomen throughout. No pulsatile masses. Normal inspection no Sutton or Liriano Lux signs. No CVA tenderness. Appears to be in some discomfort as she changes positions in bed but otherwise not in distress. Auscultation: normoactive bowel sounds Palpation: soft Back/Spine no CVA tenderness General Back: other FROM Extremity normal to inspection General Extremety ED: Negative for edema, pulses abnormal or tenderness General Extremity: Negative for edema or pulses abnormal Neuro oriented x3, CN's II-XII intact bilaterally and no sensory deficits noted Sensorium / Orientation: awake and alert Motor Exam: strength 5/5 throughout Skin no rashes or lesions noted and no wounds MDM MDM MDM Narrative Medical decision making narrative: Differential includes pyelonephritis, kidney stone, diverticulitis, other functional GI causes of pain, and other causes of colitis. Obtained labs, urinalysis, and CT of the abdomen/pelvis with IV contrast. I reviewed the images and the result which I agree with, it is basically negative for any acute. Diverticulosis is seen, which I discussed with the patient, but she does not have any radiographic evidence of diverticulitis nor does she have a leukocytosis. Her urine shows 25 leukocyte esterase which is simply trace, and 2+ bacteriuria but no pyuria, suggesting this is not all due to pyelonephritis or urinary infection. I am sending a culture given the abnormal findings and the fact that I do not have an alternative explanation for her pain. For now and prescribing her dicyclomine since she was making some of the pain worse after meals to see if that helps, as well as some tramadol, we treated her with morphine here which helped the pain some, he is stable and comfortable and able to be safely discharged home with her significant other, follow-up recommended with guards to her PCP. Lab Data Attestation: I reviewed the patient's lab results. Labs: Laboratory Results - last 24 hr 02/14/25 02/14/25 09:18 09:45 WBC 9.1 RBC 4.76 Hgb 14.3 Hct 43.0 MCV 90.3 MCH 30.0 MCHC 33.3 RDW Std Deviation 41.5 RDW Coeff of Fabrice 12.7 Plt Count 240 MPV 8.7 Immature Gran % (Auto) 0.800 Neut % (Auto) 72.6 H Lymph % (Auto) 18.2 L Nye % (Auto) 6.2 Eos % (Auto) 0.8 Baso % (Auto) 1.4 H Absolute Neuts (auto) 6.6 Absolute Lymphs (auto) 1.65 Nucleated RBC % 0 Sodium 139 Potassium 4.5 Chloride 104 Carbon Dioxide 21.5 Anion Gap 14 BUN 21 H Creatinine 0.95 Estim Creat Clear Calc 55.04 Est GFR (MDRD) Non-Af 66 BUN/Creatinine Ratio 21.9 H Glucose 109 H Calcium 10.6 Urine Color Yellow Urine Clarity Sl. Cloudy Urine pH 5.0 Ur Specific [place] 1.020 Urine Protein 30 H Urine Glucose (UA) Normal Urine Ketones Negative Urine Occult Blood 10 H Urine Nitrite Negative Urine Bilirubin Negative Urine Urobilinogen Normal Ur Leukocyte Esterase 25 H Urine RBC 0-5 SEEN Urine WBC 0-5 SEEN Ur Squamous Epith Cells 0-5 SEEN Urine Bacteria 2+ Hyaline Casts 0-5 SEEN Urine Mucus 0 SEEN Radiography Diagnostic Testing: Clinical Impression(s) from Imaging Studies Abdomen/Pelvis CT 02/14/25 09:08 IMPRESSION: 1. Colonic diverticulosis without signs of diverticulitis. 2. Mild biliary ductal dilation. No obstructing lesion seen. Findings can be seen in the postcholecystectomy state however would correlate with clinical signs of cholestasis. 3. Left renal cysts. 4. Hepatomegaly. Reading Location: [facility] Discharge Plan Triage Chief Complaint: Abd Pain ED Provider: Eros Alvarez Dx/Rx/DC Orders Clinical Impression: Acute left flank pain, Anticoagulated on apixaban, Diverticulosis of colon without diverticulitis Instructions: ED Diet, Bullock (Adult), ED Flank Pain with Uncertain Cause Prescriptions: New tramadol 50 mg tablet 50 mg PO Q4H PRN PRN (Reason: Pain) 3 Days Qty: 12 0RF dicyclomine 20 mg tablet 20 mg PO Q6H PRN PRN (Reason: abdominal discomfort) Qty: 16 0RF No Action Pravastatin 20 MG tablet 20 mg PO DAILY valsartan 160 mg DAILY spironolactone 50 mg tablet 50 mg PO DAILY Patient Comments: TAKE 1 TABLET BY MOUTH EVERY DAY metoprolol tartrate 25 mg tablet 25 mg BID Patient Comments: TAKE 1 TABLET BY MOUTH TWICE A DAY Eliquis 5 mg Tablet 5 mg PO BID levofloxacin 750 mg tablet 750 mg PO DAILY Qty: 3 0RF Primary Care Provider: Casey Gavin Referrals: Casey Gavin MD [Primary Care Provider, [facility]] - 3-5 Days if not improving Activity Restrictions/Additional Instructions: Try bland diet for several days to see if that helps. May also try the prescription medications; the dicyclomine is an antispasmodic to treat possible intestinal pain of unclear cause, the tramadol is simply for pain, you may combine them safely and you may also take Tylenol with these if needed. Avoid ibuprofen since you are on a blood thinner. Print Language: Italian Disposition Disposition: Home, Self Care
[2025-02-14 09:22] LABS: Mucous, Urine 0 SEEN /hpf (<or=2+)
[2025-02-14 09:29] LABS: Color, Urine Yellow (Yellow); Glucose, Dipstick Normal (Normal); Ketone-Dipstick Negative (Negative); Leukocyte Esterase-Dipstick 25 /ul (Negative); Nitrite-Dipstick Negative (Negative); Occult Blood-Urine 10 /ul (Negative); Protein-Dipstick 30 mg/dl (Negative); Specific Gravity, Urine 1.020 (1.002-1.030); Urine Bilirubin Dipstick Negative (Negative)
[2025-02-14 09:42] LABS: Red Blood Cells-Urine 0-5 SEEN /hpf (0-5); Squamous Epithelial Cells - UA 0-5 SEEN /hpf (5-10)
[2025-02-14 09:56] LABS: Hematocrit 43.0 % (37-47); Hemoglobin 14.3 g/dL (12.0-15.0); Immature Granulocytes Count 0.070 X10^3/uL (0.0-0.0); Mean Corp Hgb Conc 33.3 g/dL (32-36); Mean Corpuscular Volume 90.3 fL (81-99); Mean Platelet Vol. 8.7 fl (6.2-12.0); NRBC Flagged by Analyzer 0 % (0-5); Platelet Count 240 K/mm3 (150-450); RBC Distribution Width CV 12.7 % (11.6-14.6); RBC Distribution Width SD 41.5 fl (35.1-43.9); Red Blood Count 4.76 M/mm3 (4.2-5.4); White Blood Count 9.1 K/mm3 (4.4-11.0)
[2025-02-14] MEDS: 0.9% Normal Saline (1000mL) 1,000 ML 125 ML IV (10:13)
[2025-02-14 10:22] VITALS: BP 124/69; PULSE 67; RESP 18; O2SAT 98
[2025-02-14 10:32] LABS: Anion Gap 14 (5-15); BUN 21 mg/dL (4-19); BUN/Creat Ratio 21.9 RATIO (10-20); Calcium,Total 10.6 mg/dL (7.6-11.0); Carbon Dioxide 21.5 mmol/L (21.0-32.0); Chloride 104 mmol/L (98-108); Estimated Creatinine Clearance 55.04 ml/min (50-250); Glucose 109 mg/dL (70-99); Potassium 4.5 mmol/L (3.3-5.1)
[2025-02-14 12:09] VITALS: BP 104/61; PULSE 66; RESP 18; TEMP 37; O2SAT 99
== END 2025-02-14 12:34 | disposition home or self-care (01) ==
PROVIDERS: Emergency Provider Emergency Medicine; PCP Family Medicine; Visit Provider Emergency Medicine
DX: R10.A2 Flank pain, left side (principal); I48.91 Unspecified atrial fibrillation; K57.30 Diverticulosis of large intestine without perforation or abscess without bleeding; Z79.01 Long term (current) use of anticoagulants; Z87.891 Personal history of nicotine dependence; Z90.710 Acquired absence of both cervix and uterus; E78.00 Pure hypercholesterolemia, unspecified; I10 Essential (primary) hypertension; Z90.49 Acquired absence of other specified parts of digestive tract; Z79.899 Other long term (current) drug therapy
CPT/HCPCS: 74177; 80048; 81001; 85025; 87077; 87086; 87088; 87186; 96361; 96374; 99282; Q9967; A4216